=== PATIENT | female | born 1970 | race Caucasian/White ===

== ENCOUNTER 2019-11-06 13:09 | Outpatient (CLI) | payer BC, SELFPAY ==
--- NOTE | ~2019-11-06 | XR_ITS ---
EXAMINATION: XR chest 2V DATE: 11/06/2019 13:46 INDICATION: Viral cardiomyopathy. Chest pressure. TECHNIQUE: Frontal and lateral views of the chest were obtained. COMPARISON: Chest 2 views 08/24/2019, CT abdomen and pelvis 08/24/2019 FINDINGS: The chest demonstrates clear lungs without pneumonia, pleural effusion, or pneumothorax. Ca rdiomegaly is noted. IMPRESSION: 1. Cardiomegaly. Reviewed, dictated and finalized at location A. EON MASTER IMPRESSION: 1. Cardiomegaly.
== END 2019-11-06 13:10 | disposition home or self-care (01) ==
LOC: ANHIMG 13:24
PROVIDERS: PCP Family Medicine
DX: B33.24 Viral cardiomyopathy (principal)
CPT/HCPCS: 71046

== ENCOUNTER 2020-05-13 09:16 | Outpatient (CLI) | payer BC, SELFPAY ==
--- NOTE | ~2020-05-13 | XR_ITS ---
XR sternoclavicular joint BI DATE: 05/13/2020 09:39 INDICATION: Right shoulder, sternoclavicular pain TECHNIQUE: AP and bilateral oblique views COMPARISON: None FINDINGS: Normal alignment at the sternoclavicular and acromioclavicular joints. Sternoclavicular gita nts Left-sided defibrillator/pacemaker device. IMPRESSION: Negative Reviewed, dictated and finalized at Location [facility]. Reviewed, dictated and finalized at location A. IMPRESSION: Negative
--- NOTE | ~2020-05-13 | XR_ITS ---
XR chest 2V DATE: 05/13/2020 09:38 INDICATION: Joint disorder of right shoulder. Congestive heart failure. TECHNIQUE: PA and lateral views COMPARISON: 11/06/2019 2 view chest FINDINGS: Left-sided defibrillator/triple lead pacemaker device with leads in expected position. Normal heart size. No hilar or mediastinal enlargement. No pulmonary infiltrate or consolidation, pleural effusion or pulmonary vascular congestion or pneumo thorax. IMPRESSION: No active cardiopulmonary disease New defibrillator/triple lead pacemaker device placement since 11/06/2019 Reviewed, dictated and finalized at location A.
== END 2020-05-13 09:17 | disposition home or self-care (01) ==
LOC: ANHIMG 09:21
PROVIDERS: PCP Family Medicine; Visit Provider Physician Assistant
DX: M25.811 Other specified joint disorders, right shoulder (principal); I50.9 Heart failure, unspecified; Z95.0 Presence of cardiac pacemaker
CPT/HCPCS: 71046; 71130

== ENCOUNTER 2020-05-20 12:42 | Emergency (ER) | payer BC, SELFPAY ==
--- NOTE | ~2020-05-20 | CT_ITS ---
EXAMINATION: CT chest w con DATE: 05/20/2020 15:08 INDICATION: Cough TECHNIQUE: Transaxial computed tomographic images of the chest were obtained after the administration of 75 cc of Omnipaque 350 intravenous contrast. The dose-length product (DLP) was 305.01 mGy-cm. Ite rative reconstruction was used. COMPARISON: 05/25/2005 FINDINGS: The lungs are free of acute opacities. There is no pleural effusion or pneumothorax. There is a 3 mm nodule of the right upper lobe on image 25. A triple lead pacemaker has been inserted in th e left anterior chest wall. Cardiomegaly is noted. There are no pathologically enlarged thoracic lymp h nodes. There is mild thoracic spondylosis. IMPRESSION: 1. No acute cardiopulmonary abnormality. 2. 3 mm nodule of the right upper lobe, likely old granulomatous disease. If the patient has no risk factors for malignancy, no further follow up is required. If there are risk factors for malignancy ( i.e., history of smoking, asbestos or radiation exposure), consider followup CT in 12 months. Reviewed, dictated and finalized at location A. IMPRESSION: 1. No acute cardiopulmonary abnormality. 2. 3 mm nodule of the right upper lobe, likely old granulomatous disease. If th e patient has no risk factors for malignancy, no further follow up is required. If there are risk factors for malignancy (i.e., history of smoking, asbestos or radiation exposure), consider followup CT in 12 months.
[2020-05-20 12:44] VITALS: BP 107/74; PULSE 91; RESP 18; TEMP 36.7; O2SAT 100
--- NOTE | 2020-05-20 14:17 | WC.ED.TRAUMA ---
HPI - Trauma General Chief Complaint: Extremity Injury, Upper <Gideon Shearer PA-C - Last Filed: 05/20/20 16:10> Stated Complaint: right clavicle pain <Gideon Shearer PA-C - Last Filed: 05/20/20 16:10> Time Seen by Provider: 05/20/20 13:31 <Gideon Shearer PA-C - Last Filed: 05/20/20 16:10> Source: patient and family <RATNA Bryan Last Filed: 05/20/20 16:10> Mode of arrival: ambulatory <Gideon Shearer PA-C - Last Filed: 05/20/20 16:10> Limitations: no limitations <Gideon Shearer PA-C - Last Filed: 05/20/20 16:10> History of Present Illness HPI narrative: Patient is a 50-year-old female who presents with over a week duration of tenderness along the right sternoclavicular junction patient was seen by primary care had outpatient x-rays which were unremarkable continues to have pain and swelling with some radiation to the back patient denies injury or trauma or similar occurrence patient on arrival is in the room in no distress has taken Tylenol with minimal improvement <Gideon Shearer PA-C - Last Filed: 05/20/20 16:10> Related Data Home Medications: Home Medications Medication Instructions Recorded Confirmed metoprolol succinate 50 mg 50 mg PO DAILY 05/13/20 05/13/20 tablet,extended release 24 hr sacubitril 97 mg-valsartan 103 mg 1 tablet PO BID 05/13/20 05/13/20 tablet fluoxetine 60 mg PO QAM 05/20/20 <Gideon Shearer PA-C - Last Filed: 05/20/20 16:10> Allergies/Adverse Reactions: Allergies Allergy/AdvReac Type Severity Reaction Status Date / Time No Known Allergies Allergy Verified 05/20/20 13:06 <Gideon Shearer PA-C - Last Filed: 05/20/20 16:10> Review of Systems Review of Systems: All systems reviewed & are unremarkable except as noted in HPI and below <Gideon Shearer PA-C - Last Filed: 05/20/20 16:10> PMFSH Past Medical History Medical History: Medical History Allergy to intravenous contrast Anxiety Asthma Enlargement of right sternoclavicular joint History of stroke without residual deficits LBBB (left bundle branch block) Nonischemic cardiomyopathy RLS (restless legs syndrome) Seasonal allergies <Gideon Shearer PA-C - Last Filed: 05/20/20 16:10> Surgical History Surgical History: Surgical History H/O section x2 History of cholecystectomy History of tubal ligation <Gideon Shearer PA-C - Last Filed: 05/20/20 16:10> Social History Social History: Social History Social History: , 2 grown children. 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 Smoking status: Never smoker Second hand tobacco smoke exposure: No Alcohol intake: current Substance use: never Gender identity (if verbalized by the patient): Female Spiritual care concerns: No Agree to blood products: Yes <Gideon Shearer PA-C - Last Filed: 05/20/20 16:10> Exam Narrative: Exam Narrative: GENERAL: Well-appearing, well-nourished, and in no acute distress. HEAD: Normocephalic, atraumatic. EYES: PERRLA and EOMI. ENT: Nares clear, no rhinorrhea or epistaxis. Mucous membranes moist. NECK: Supple. No adenopathy or masses. CHEST: Clear to auscultation. No respiratory distress. No wheezes rales or rhonchi HEART: Regular rate and rhythm. No murmur heard. Normal peripheral pulses. EXTREMITIES: Normal range of motion. No edema. Tenderness at the sternoclavicular junction right-sided no deformities noted SKIN: Warm, dry, no rash. NEURO: No focal deficits. Alert and oriented x3. Cranial nerves II through XII grossly intact. Normal speech and gait. Neurovascularly intact PSYCH: Normal mood and affect. <Gideon Shearer PA-C - Last Filed: 05/20/20 16:10> Course Course Emergency Course: Patient
[2020-05-20 14:40] LABS: Basophils Absolute Auto 0.1 K/mm3 (0.0-0.1); Basophils Percent Auto 0.5 % (0.2-1.2); Eosinophils Absolute Auto 0.5 K/mm3 (0-0.3); Eosinophils Percent Auto 5.6 % (0-4.4); Hematocrit 39.3 % (37.0-47.0); Hemoglobin 13.2 g/dL (12.0-15.0); Immature Granulocyte Absolute 0.05 K/mm3 (0.00-0.031); Immature Granulocyte Percent A 0.5 % (0-0.5); Lymphocytes Absolute Auto 1.49 K/mm3 (0.9-3.2); Lymphocytes Percent Auto 15.6 % (18.3-44.2); Mean Corpuscular HGB Conc 33.6 g/dl (32-36); Mean Corpuscular Hemoglobin 29.4 pg (26-34); Mean Corpuscular Volume 87.5 fl (80-100); Mean Platelet Volume 10.6 fl (7.4-10.4); Monocytes Absolute Auto 0.7 K/mm3 (0.1-0.6); Monocytes Percent Auto 6.8 % (2.6-8.5); Neutrophils Absolute Auto 6.8 K/mm3 (1.3-6.7); Platelet Count Result 243 k/mm3 (150-375); Red Blood Count 4.49 M/mm3 (4.2-5.4); Red Cell Distribution Width 13.2 % (11.5-14.5); White Blood Count 9.5 K/mm3 (4.5-10.0)
[2020-05-20 14:52] LABS: Alanine Aminotransferase 42 U/L (4-35); Albumin Level 4.3 g/dL (3.5-5.1); Alkaline Phosphatase 63 U/L (38-126); Anion Gap 7 mmol/L (8-16); Aspartate Amino Transferase 41 U/L (14-36); Bilirubin,Total 0.4 mg/dL (0.2-1.3); Blood Urea Nitrogen 10 mg/dL (7-17); Calcium 8.8 mg/dL (8.4-10.2); Carbon Dioxide 28 mmol/L (22-30); Chloride 101 mmol/L (98-107); Estimated Glomerular Filt Rate > 60; Glucose 104 mg/dL (65-105); Potassium 3.4 mmol/L (3.4-5.0); Sodium 136 mmol/L (137-145)
[2020-05-20 16:28] VITALS: BP 114/66; PULSE 67; RESP 16; TEMP 36.6; O2SAT 100
== END 2020-05-20 16:29 | disposition home or self-care (01) ==
PROVIDERS: Emergency Medicine Emergency Medical Services; Emergency Provider Emergency Medicine; PCP Family Medicine
DX: R07.9 Chest pain, unspecified (principal); F41.9 Anxiety disorder, unspecified; J45.909 Unspecified asthma, uncomplicated
CPT/HCPCS: 36415; 71260; 80053; 85025; 99284; Q9967

== ENCOUNTER 2020-09-03 17:19 | Outpatient (CLI) | payer BC, SELFPAY ==
--- NOTE | ~2020-09-03 | XR_ITS ---
EXAMINATION: XR chest 2V DATE: 09/03/2020 17:46 INDICATION: Midsternal chest pain and shortness of breath TECHNIQUE: PA and lateral views of the chest were obtained. COMPARISON: Chest radiograph dated 05/13/2020 FINDINGS: The lungs remain clear with no focal airspace opacities, pulmonary edema, pleural effusion or pneumot horax. The cardiomediastinal silhouette is normal. Three lead pacemaker/AICD seen with leads projecti ng over the expected locations of the right atrial appendage, apex of the right ventricle and overlyi ng the left ventricle likely having traversed the coronary sinus. IMPRESSION: 1. No acute cardiopulmonary disease. Reviewed, dictated and finalized at location A. 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
== END 2020-09-03 17:20 | disposition home or self-care (01) ==
PROVIDERS: PCP Family Medicine; Visit Provider Internal Medicine Cardiovascular Disease
DX: R06.02 Shortness of breath (principal); R07.89 Other chest pain; R07.2 Precordial pain
CPT/HCPCS: 71046

== ENCOUNTER 2021-02-01 12:40 | Emergency (ER) | payer BC, SELFPAY ==
[2021-02-01] VITALS (12 sets, daily range): BP systolic 99–125; BP diastolic 51–80; PULSE 58–74; RESP 10–19; TEMP 36.2; O2SAT 96–100
--- NOTE | ~2021-02-01 | XR_ITS ---
EXAMINATION: XR chest 1V portable DATE: 02/01/2021 15:47 INDICATION: Right-sided chest pain and tingling. Hypotension. TECHNIQUE: frontal view of the chest was obtained. COMPARISON: Chest radiograph dated 09/03/2020 FINDINGS: There is mild bronchial wall thickening at the bilateral jimmie. No focal airspace opacities, pleural e ffusion or pneumothorax. The cardiomediastinal silhouette is normal. Three lead pacemaker/AICD seen w ith leads projecting over the expected locations of the right atrial appendage, apex of the right cinthya tricle and overlying the left ventricle likely having traversed the coronary sinus. IMPRESSION: 1. Mild perihilar bronchial wall thickening which could be due to bronchitis, reactive airway disease /asthma or potentially minimal pulmonary edema. Reviewed, dictated and finalized at location A. IMPRESSION: 1. Mild perihilar bronchial wall thickening which could be due to bronchitis, r eactive airway disease/asthma or potentially minimal pulmonary edema.
--- NOTE | ~2021-02-01 | CT_ITS ---
EXAMINATION: CT brain wo con DATE: 02/01/2021 14:17 INDICATION: Right arm tingling TECHNIQUE: Computed tomography (CT) of the head was performed without intravenous contrast. The mA wa s adjusted according to patient size. Iterative reconstruction technique was employed. Exam dose: 60 5.33 mGy-cm total exam DLP. COMPARISON: None FINDINGS: There is bilateral asymmetric frontal cerebral cortical atrophy. There is focal asymmetric diminished attenuation in the left frontotemporal area, likely consistent with old cerebrovascular in farct. No intracranial mass lesion or hemorrhage. No recent cerebrovascular accident is detected. No midline shift or mass effect. No subdural or epi dural hematoma is detected. There is soft tissue thickening of the ethmoid air cells. Included paranasal sinuses and mastoid air cells are otherwise normally developed and aerated. IMPRESSION: Cerebral atrophy Chronic focal left frontotemporal encephalofacial, likely due to old CVA No acute intracranial abnormality Reviewed, dictated and finalized at Location A. Reviewed, dictated and finalized at location A.
--- NOTE | 2021-02-01 13:15 | ECG_ITS ---
SINUS RHYTHM RIGHT AXIS DEVIATION INCOMPLETE LEFT BUNDLE BRANCH BLOCK BORDERLINE R WAVE PROGRESSION, ANTERIOR LEADS BORDERLINE ST ABNORMALITY- INFERIOR LEADS BASELINE ARTIFACT- I, II, III, AVR, AVL, AVF, V1, V3-V6 ABNORMAL ECG Electronically Signed On 02-01-2021 19:20:52 CDT by Librado Ortez D.O. COMPARED TO ECG 08/25/2019 03:12:31 NO SIGNIFICANT CHANGES MTDD
[2021-02-01 13:30] LABS: Basophils Absolute Auto 0.1 K/mm3 (0.0-0.1); Basophils Percent Auto 0.6 % (0.2-1.2); Eosinophils Absolute Auto 0.7 K/mm3 (0-0.3); Eosinophils Percent Auto 6.4 % (0-4.4); Hematocrit 38.3 % (37.0-47.0); Hemoglobin 12.2 g/dL (12.0-15.0); Immature Granulocyte Absolute 0.04 K/mm3 (0.00-0.031); Immature Granulocyte Percent A 0.4 % (0-0.5); Lymphocytes Absolute Auto 1.69 K/mm3 (0.9-3.2); Mean Corpuscular HGB Conc 31.9 g/dl (32-36); Mean Corpuscular Hemoglobin 27.7 pg (26-34); Mean Corpuscular Volume 86.8 fl (80-100); Mean Platelet Volume 10.6 fl (7.4-10.4); Monocytes Absolute Auto 0.8 K/mm3 (0.1-0.6); Neutrophils Absolute Auto 7.2 K/mm3 (1.3-6.7); Neutrophils Percent Auto 68.6 % (45.5-73.1); Platelet Count Result 263 k/mm3 (150-375); Red Blood Count 4.41 M/mm3 (4.2-5.4); Red Cell Distribution Width 13.8 % (11.5-14.5); White Blood Count 10.6 K/mm3 (4.5-10.0)
[2021-02-01 13:37] LABS: Anion Gap 3 mmol/L (8-16); Blood Urea Nitrogen 10 mg/dL (7-17); Carbon Dioxide 33 mmol/L (22-30); Chloride 103 mmol/L (98-107); Estimated CRCL calculation 77 ml/min; Estimated Glomerular Filt Rate > 60; Glucose 92 mg/dL (65-105); Potassium 3.6 mmol/L (3.4-5.0); Sodium 139 mmol/L (137-145)
[2021-02-01] MEDS: SODIUM CHLORIDE 0.9% IV 500 ML 999 ML IV CONT (13:39)
[2021-02-01] MEDS: KETOROLAC 15 MG/ML VIAL (*BKC) IV PUSH (15:36)
[2021-02-01 15:37] LABS: Troponin I < 0.012 ng/mL (0.000-0.034)
[2021-02-01] MEDS: MORPHINE SULFATE (*CRX) 4 MG/ML INJ 2 MG IV PUSH (15:37)
--- NOTE | 2021-02-01 16:17 | ED.GENADULT ---
HPI - General Adult General Chief complaint: Recheck/Abnormal Lab/Rx Stated complaint: low blood pressure Time Seen by Provider: 02/01/21 13:25 Source: patient and family Mode of arrival: ambulatory Limitations: no limitations History of Present Illness HPI narrative: 50-year-old with a history of nonischemic cardiomyopathy s/p AICD here with complaints of low blood pressure for past few days. Patient states she is taking 50 mg of metoprolol daily. She also complains of chest pain on the right side of her chest which radiates to the left. Denies any shortness of breath. History of nausea but no significant vomiting or diarrhea. No history of fever or chills. She states that she is Dr. Kellogg this morning and was told to come to the ER. Patient also complains of right upper extremity and right lower extremity tingling sensation for past few days. Medical history of strokes in the past. Onset (ago): day(s) (2) Location: chest Radiation: non-radiation Severity: mild Quality: aching Pain Consistency: constant Relieving factors: none Exacerbating factors: none Associated symptoms: headaches Treatments prior to arrival: none Related Data Home Medications Medication Instructions Recorded Confirmed metoprolol succinate 50 mg 50 mg PO DAILY 05/13/20 09/15/20 tablet,extended release 24 hr sacubitril 97 mg-valsartan 103 mg 1 tablet PO BID 05/13/20 09/15/20 tablet furosemide 20 mg tablet 40 mg PO QAM tablet 07/03/20 09/15/20 acetaminophen 500 mg tablet 500 mg PO Q6H PRN 09/15/20 09/15/20 cetirizine 10 mg tablet 10 mg PO DAILY 09/15/20 09/15/20 eszopiclone 1 mg tablet 1 mg PO ONCE 09/15/20 09/15/20 ondansetron HCl 4 mg tablet 4 mg PO Q8H 09/15/20 09/15/20 potassium chloride 20 mEq 20 meq PO DAILY 09/15/20 09/15/20 tablet,extended release spironolactone 25 mg tablet 25 mg PO DAILY 09/15/20 09/15/20 Allergies Allergy/AdvReac Type Severity Reaction Status Date / Time No Known Allergies Allergy Verified 02/01/21 12:41 Review of Systems Review of Systems: All systems reviewed & are unremarkable except as noted in HPI and below Constitutional: Constitutional: Reports no additional constitutional complaints Eyes: Eyes: Reports no additional eye complaints ENT: Reports system reviewed and no additional complaints, except as documented Cardiovascular: Cardiovascular: Reports as per HPI Respiratory: Respiratory: Reports no additional respiratory complaints Gastrointestinal: Gastrointestinal: Reports no additional gastrointestinal complaints Musculoskeletal: Musculoskeletal: Reports as per HPI Neurologic: Reports as per HPI [facility] Past Medical History Medical History (Updated 02/01/21 @ 16:26 by Red Greer MD) Allergy to intravenous contrast Anxiety Asthma Enlargement of right sternoclavicular joint History of stroke without residual deficits LBBB (left bundle branch block) Nonischemic cardiomyopathy RLS (restless legs syndrome) Seasonal allergies Surgical History Surgical History H/O section x2 History of cholecystectomy History of tubal ligation Family History Family History Father , Became short of breath and suddenly at home, son tried CPR but could not revive him. age 49. Hypertension Cerebral aneurysm known cerebral aneurysm 6 or 7 years prior to Mother Alive and well Sibling Hypertension 2 brothers have hypertension Grandparent Cerebral aneurysm Cancer Other Acute myocardial infarction Family history of malignant neoplasm of breast Family history of malignant neoplasm of breast in first degree relative Social History Social History Social History: , 2 grown children. 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 Smoking status: Never smoker Se
== END 2021-02-01 16:26 | disposition home or self-care (01) ==
PROVIDERS: Emergency Provider Family Medicine; PCP Family Medicine
DX: I95.9 Hypotension, unspecified (principal); J45.909 Unspecified asthma, uncomplicated; G25.81 Restless legs syndrome; I42.8 Other cardiomyopathies; Z95.810 Presence of automatic (implantable) cardiac defibrillator; F41.9 Anxiety disorder, unspecified; Z86.73 Personal history of transient ischemic attack (TIA), and cerebral infarction without residual deficits; I44.7 Left bundle-branch block, unspecified; R94.31 Abnormal electrocardiogram [ECG] [EKG]
CPT/HCPCS: 36415; 70450; 71045; 80048; 84484; 85025; 93005; 96361; 96374; 96375; 99284; J1885; J2270; J7040

== ENCOUNTER 2021-02-16 11:04 | Emergency (ER) | payer OTHER, BC, SELFPAY ==
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
[2021-02-16 11:03] VITALS: BP 149/65; PULSE 66; RESP 18; TEMP 36.8; O2SAT 99
[2021-02-16 11:10] VITALS: BP 131/74; PULSE 68; RESP 15; TEMP 36.7; O2SAT 100
[2021-02-16 11:27] VITALS: BP 118/63; PULSE 70; RESP 16; O2SAT 100
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
[2021-02-16] MEDS: ONDANSETRON INJ 4 MG/2 ML VIAL IV PUSH (11:48)
[2021-02-16 11:52] LABS: Basophils Percent Auto 0.4 % (0.2-1.2); Eosinophils Absolute Auto 0.6 K/mm3 (0-0.3); Eosinophils Percent Auto 6.6 % (0-4.4); Hematocrit 38.9 % (37.0-47.0); Hemoglobin 12.4 g/dL (12.0-15.0); Immature Granulocyte Absolute 0.03 K/mm3 (0.00-0.031); Immature Granulocyte Percent A 0.3 % (0-0.5); Lymphocytes Absolute Auto 1.17 K/mm3 (0.9-3.2); Lymphocytes Percent Auto 13.1 % (18.3-44.2); Mean Corpuscular HGB Conc 31.9 g/dl (32-36); Mean Corpuscular Hemoglobin 27.1 pg (26-34); Mean Corpuscular Volume 85.1 fl (80-100); Mean Platelet Volume 10.9 fl (7.4-10.4); Monocytes Absolute Auto 0.6 K/mm3 (0.1-0.6); Monocytes Percent Auto 6.5 % (2.6-8.5); Neutrophils Absolute Auto 6.5 K/mm3 (1.3-6.7); Neutrophils Percent Auto 73.1 % (45.5-73.1); Platelet Count Result 246 k/mm3 (150-375); Red Blood Count 4.57 M/mm3 (4.2-5.4); White Blood Count 8.9 K/mm3 (4.5-10.0)
[2021-02-16 12:03] LABS: Prothrombin Time 13.7 Seconds (11.1-14.7)
[2021-02-16 12:04] LABS: Alanine Aminotransferase 15 U/L (4-35); Albumin Level 4.1 g/dL (3.5-5.1); Alkaline Phosphatase 53 U/L (38-126); Anion Gap 2 mmol/L (8-16); Aspartate Amino Transferase 28 U/L (14-36); Bilirubin,Total 0.4 mg/dL (0.2-1.3); Blood Urea Nitrogen 8 mg/dL (7-17); Calcium 8.8 mg/dL (8.4-10.2); Carbon Dioxide 31 mmol/L (22-30); Chloride 103 mmol/L (98-107); Estimated CRCL calculation 89 ml/min; Estimated Glomerular Filt Rate > 60; Glucose 93 mg/dL (65-105); Lipase 79 U/L (23-300); Partial Thromboplastin Time 31.7 SECONDS (22.3-36.8); Potassium 3.3 mmol/L (3.4-5.0); Sodium 136 mmol/L (137-145)
--- NOTE | 2021-02-16 12:08 | PC.NURSE ---
Pt to CT.
[2021-02-16 12:45] VITALS: BP 123/58; PULSE 68; RESP 15; O2SAT 100
--- NOTE | 2021-02-16 12:50 | PC.NURSE ---
c-collar removed by PA.
[2021-02-16] MEDS: PROCHLORPERAZINE EDISYLATE 10 MG/2 ML VIAL IV PUSH (12:56)
[2021-02-16 14:07] VITALS: BP 132/60; PULSE 78; RESP 18; O2SAT 99
== END 2021-02-16 14:09 | disposition home or self-care (01) ==
PROVIDERS: Physician Assistant; Emergency Provider Emergency Medicine
DX: S16.1XXA Strain of muscle, fascia and tendon at neck level, initial encounter (principal); E87.6 Hypokalemia; V47.5XXA Car driver injured in collision with fixed or stationary object in traffic accident, initial encounter
CPT/HCPCS: 36415; 70450; 71260; 72125; 73030; 74177; 80053; 81025; 83690; 85025; 85610; 85730; 96365; 96375; 99284; J0131; J0780; J2405; Q9967

== ENCOUNTER → 2021-04-17 06:54 | Outpatient (CLI) | payer BC, SELFPAY ==
[2021-04-17 19:10] LABS: SARS-CoV-2 RNA PCR Negative
== END ==
PROVIDERS: PCP Family Medicine; Visit Provider Physician Assistant
DX: R05 Cough (principal); Z20.822 Contact with and (suspected) exposure to COVID-19
CPT/HCPCS: C9803; U0003; U0005

== ENCOUNTER 2021-05-08 12:11 | Outpatient (CLI) | payer BC, SELFPAY ==
--- NOTE | ~2021-05-08 | XR_ITS ---
XR chest 2V DATE: 05/08/2021 12:32 INDICATION: Cough TECHNIQUE: PA and lateral views COMPARISON: 02/16/2021 CT chest 02/01/2021 portable AP chest FINDINGS: Left defibrillator/pacemaker device with leads overlying right atrium, right ventricle and coronary sinus. Normal heart size. No hilar or mediastinal enlargement. No pulmonary infiltrate or co nsolidation, pleural effusion or pulmonary vascular congestion or pneumothorax. Included skeletal structures are unremarkable. IMPRESSION: Left-sided defibrillator/triple lead pacemaker No active cardiopulmonary disease Reviewed, dictated and finalized at location B.
== END 2021-05-08 12:12 | disposition home or self-care (01) ==
LOC: ANHIMG 12:16
PROVIDERS: PCP Family Medicine; Visit Provider Family Medicine
DX: R05 Cough (principal); Z95.0 Presence of cardiac pacemaker
CPT/HCPCS: 71046

== ENCOUNTER 2021-06-09 08:27 | Outpatient (CLI) | payer BC, SELFPAY ==
--- NOTE | 2021-06-09 11:00 | NEURO_ITS ---
Impression: # Complains of right upper extremity pain and numbness of right hand. # Subtle evolving Carpal Tunnel Syndrome. # No ulnar neuropathy. # Normal needle/EMG exam. Nerve Conduction Studies Anti Sensory Summary Table Stim Site NR Peak (ms) P-T Amp (?V) Site1 Site2 Delta-P (ms) Dist (cm) Richard (m/s) Left Median Anti Sensory (2-3nd Digit) Wrist 2.9 69.3 Wrist 2-3nd Digit 2.9 14.0 48 Wrist 2.9 102.3 Wrist 2-3nd Digit 2.9 14.0 48 Right Median Anti Sensory (2-3nd Digit) Wrist 3.3 79.9 Wrist 2-3nd Digit 3.3 14.0 42 Wrist 3.5 50.6 Wrist 2-3nd Digit 3.3 14.0 42 Left Radial Anti Sensory (Base 1st Digit) Wrist 2.0 57.0 Wrist Base 1st Digit 2.0 0.0 Right Radial Anti Sensory (Base 1st Digit) Wrist 1.8 35.9 Wrist Base 1st Digit 1.8 0.0 Left Ulnar Anti Sensory (5th Digit) Wrist 2.4 78.4 Wrist 5th Digit 2.4 14.0 58 Right Ulnar Anti Sensory (5th Digit) Wrist 2.2 99.3 Wrist 5th Digit 2.2 14.0 64 Motor Summary Table Stim Site NR Onset (ms) O-P Amp (mV) Site1 Site2 Delta-0 (ms) Dist (cm) Richard (m/s) Left Median Motor (Abd Poll Brev) Wrist 3.8 4.6 Elbow Wrist 4.8 26.0 54 Elbow 8.6 2.8 Right Median Motor (Abd Poll Brev) Wrist 3.4 7.2 Elbow Wrist 5.0 25.0 50 Elbow 8.4 5.0 Left Ulnar Motor (Abd Dig Minimi) Wrist 2.7 9.0 A Elbow Wrist 4.6 27.0 59 A Elbow 7.3 6.0 Right Ulnar Motor (Abd Dig Minimi) Wrist 2.5 7.6 A Elbow Wrist 5.0 27.0 54 A Elbow 7.5 7.2 F Wave Studies NR F-Lat (ms) L-R F-Lat (ms) Left Median (Mrkrs) (Abd Poll Brev) 28.67 0.13 Right Median (Mrkrs) (Abd Poll Brev) 28.54 0.13 Left Ulnar (Mrkrs) (Abd Dig Min) 27.40 0.34 Right Ulnar (Mrkrs) (Abd Dig Min) 27.07 0.34 EMG Side Muscle Nerve Root Ins Act Fibs Amp Dur Recrt Comment Right 1stDorInt Ulnar C8-T1 Nml Nml Nml Nml Nml Right Ext Indicis Radial (Post Int) C7-8 Nml Nml Nml Nml Nml Right Ext Digitorum Radial (Post Int) C7-8 Nml Nml Nml Nml Nml Right BrachioRad Radial C5-6 Nml Nml Nml Nml Nml Right PronatorTeres Median C6-7 Nml Nml Nml Nml Nml Right Abd Poll Brev Median C8-T1 Nml Nml Nml Nml Nml Left 1stDorInt Ulnar C8-T1 Nml Nml Nml Nml Nml Left Ext Indicis Radial (Post Int) C7-8 Nml Nml Nml Nml Nml Left Ext Digitorum Radial (Post Int) C7-8 Nml Nml Nml Nml Nml Left BrachioRad Radial C5-6 Nml Nml Nml Nml Nml Left PronatorTeres Median C6-7 Nml Nml Nml Nml Nml Left Abd Poll Brev Median C8-T1 Nml Nml Nml Nml Nml Right Biceps Musculocut C5-6 Nml Nml Nml Nml Nml Right Triceps Radial C6-7-8 Nml Nml Nml Nml Nml Right Deltoid Axillary C5-6 Nml Nml Nml Nml Nml Left Biceps Musculocut C5-6 Nml Nml Nml Nml Nml Left Triceps Radial C6-7-8 Nml Nml Nml Nml Nml Left Deltoid Axillary C5-6 Nml Nml Nml Nml Nml MTDD
== END 2021-06-09 08:28 | disposition home or self-care (01) ==
PROVIDERS: PCP Family Medicine; Visit Provider Psychiatry & Neurology Neurology
DX: R20.0 Anesthesia of skin (principal); G56.01 Carpal tunnel syndrome, right upper limb
CPT/HCPCS: 95886; 95911

== ENCOUNTER → 2022-01-11 13:08 | Outpatient (CLI) | payer BC, SELFPAY ==
--- NOTE | ~2022-01-11 | MM_ITS ---
EXAMINATION: MM screening harris BI w tobias HISTORY: Screening mammogram TECHNIQUE: Craniocaudal and mediolateral oblique 3-D tomosynthesis images were obtained and synthetic 2-D images were generated. Bilateral rotated lateral CC views. Bilateral rotated lateral CC views. C AD analysis was submitted and interpreted. COMPARISON: No prior mammogram is available for comparison at this institution. BREAST PARENCHYMAL COMPOSITION: There are scattered areas of fibroglandular density. FINDINGS: Possible new 4.5 mm mass in the anterior aspect of the lower outer right breast (craniocaud al Tomosynthesis image ). Diagnostic right mammogram and right breast ultrasound examination are recommended. Left breast: There is no evidence of suspicious mass, calcification, or architectural distortion to s uggest malignancy in either breast. There has been no suspicious interval change. IMPRESSION: 1. Possible new 4.5 mm mass in the anterior aspect of lower outer right breast 2. Diagnostic right mammogram and right breast ultrasound examination are recommended. BI-RADS Category 0: Incomplete: Needs additional imaging evaluation. Reviewed, dictated and finalized at location A. IMPRESSION: 1. Possible new 4.5 mm mass in the anterior aspect of lower outer right breast 2. Diagnostic right mammogram and right breast ultrasound examination are recom mended. BI-RADS Category 0: Incomplete: Needs additional imaging evaluation.
== END ==
PROVIDERS: PCP Family Medicine; Visit Provider Physician Assistant
DX: Z12.31 Encounter for screening mammogram for malignant neoplasm of breast (principal); R92.8 Other abnormal and inconclusive findings on diagnostic imaging of breast
CPT/HCPCS: 77063; 77067

== ENCOUNTER → 2022-01-25 08:17 | Outpatient (CLI) | payer BC, SELFPAY ==
--- NOTE | ~2022-01-25 | MMUS_ITS ---
EXAMINATION: MM diagnostic harris RT w tobias, US breast RT limited HISTORY: Follow-up right breast asymmetry TECHNIQUE: Additional 3-D tomosynthesis images of the right breast were performed and synthetic 2-D i mages were generated. CAD analysis was submitted and interpreted. High resolution Limited right breas t ultrasound was performed. COMPARISON: Comparison to multiple prior studies sequentially, with oldest reviewed study dated 12/21. BREAST PARENCHYMAL COMPOSITION: Breast composed of scattered areas of fibroglandular density FINDINGS: MAMMOGRAPHIC FINDINGS: There are no suspicious masses, calcifications or architectural distortion in the right breast to sug gest malignancy. ULTRASOUND: Limited right breast ultrasound: Normal heterogeneous echotexture without focal solid or cystic mass. IMPRESSION: 1. No evidence for malignancy in the right breast. 2. Routine yearly screening mammogram and regular clinical breast examination are recommended. BI-RADS Category 1: Negative Reviewed, dictated and finalized at location A. IMPRESSION: 1. No evidence for malignancy in the right breast. 2. Routine yearly screening mammogram and regular clinical breast examination a re recommended. BI-RADS Category 1: Negative
== END ==
PROVIDERS: PCP Physician Assistant; Visit Provider Physician Assistant
DX: R92.8 Other abnormal and inconclusive findings on diagnostic imaging of breast (principal)
CPT/HCPCS: 76642; 77061; 77065; G0279

== ENCOUNTER 2022-03-02 14:55 | Outpatient (CLI) | payer BC, SELFPAY ==
--- NOTE | ~2022-03-02 | XR_ITS ---
EXAMINATION: XR hip LT 2V w AP pelvis INDICATION: Pelvic and left hip pain TECHNIQUE: AP view of the pelvis and two views of the left hip are obtained. COMPARISON: None available FINDINGS: Bone alignment is normal. There is no fracture. The soft tissues are unremarkable. IMPRESSION: 1. No acute osseous abnormality. Reviewed, dictated and finalized at location F.
--- NOTE | ~2022-03-02 | XR_ITS ---
EXAMINATION: XR lumbar spine 2-3V DATE: 03/02/2022 15:19 INDICATION: Low back pain TECHNIQUE: Anteroposterior and lateral views of the lumbar spine, and cone-down lateral view of the l umbosacral junction were obtained. COMPARISON: None. FINDINGS: Bone alignment is normal. There is no fracture. The vertebral body heights an intervertebra l disc spaces are maintained. Small degenerative osteophytes project from the anterior endplates of m ultiple vertebral bodies. IMPRESSION: 1. Mild lumbar spondylosis without acute findings. Reviewed, dictated and finalized at location F.
== END 2022-03-02 14:56 | disposition home or self-care (01) ==
PROVIDERS: PCP Family Medicine; Visit Provider Physician Assistant Medical
DX: M54.50 Low back pain, unspecified (principal); M25.552 Pain in left hip; M47.816 Spondylosis without myelopathy or radiculopathy, lumbar region
CPT/HCPCS: 72100; 73502

== ENCOUNTER 2023-02-07 08:41 | Outpatient (CLI) | payer BC, SELFPAY ==
--- NOTE | ~2023-02-07 | XR_ITS ---
EXAMINATION: XR fl inj shoulder RT - MR/CT DATE: 02/07/2023 09:34 INDICATION: Right shoulder adhesive capsulitis TECHNIQUE: A time-out was performed to verify the patient's name, date of , and procedure to b e performed. The procedure including the risks, benefits, and alternatives was discussed with the pat ient. Risks discussed included bleeding and infection. The patient understood the risks and agreed to proceed. The skin overlying the rotator cuff interval of the right glenohumeral joint was prepped a nd draped in usual sterile fashion. Anesthetic was administered with 1% lidocaine subcutaneously. A 22 G needle was advanced under fluoroscopic guidance into the joint. Injectate consisting of a 1:1:1 mixture of sterile saline:Omnipaque 240:1% lidocaine was injected with intra-articular administratio n confirmed with intermittent fluoroscopy. The needle was removed and the entry site was cleaned and dressed. There were no immediate complications. Fluoroscopy exposure time was 0.2 minutes. The total number of images was 61. FINDINGS: Real-time fluoroscopy demonstrates the needle in the right glenohumeral joint. IMPRESSION: 1. Successful right glenohumeral joint injection of an iodinated contrast mixture for subsequent CT a rthrogram which will be dictated separately. Reviewed, dictated and finalized at location A. IMPRESSION: 1. Successful right glenohumeral joint injection of an iodinated contrast mixtu re for subsequent CT arthrogram which will be dictated separately.
--- NOTE | ~2023-02-07 | CT_ITS ---
EXAMINATION: CT shoulder RT w con DATE: 02/07/2023 09:45 INDICATION: Right shoulder adhesive capsulitis TECHNIQUE: High resolution computed tomography (CT) arthrogram of the shoulder was performed with int ra-articular contrast but without intravenous contrast. Details of the contrast mixture and joint inj ection have been dictated separately. Additional sagittal and coronal reconstructions were performed. Automated exposure control and iterative reconstruction technique were employed. The dose-length pro duct was 356.36 mGy-cm. COMPARISON: Right shoulder radiographs dated 10/19/2022 and 08/24/2021 FINDINGS: Bone alignment is normal. No fracture. Mild osteoarthritis at the right acromioclavicular joint with chronic mild subarticular cystic change at the lateral head of the clavicle. Mild glenohumeral osteoa rthritis with nonuniform partial-thickness cartilage loss along portions of the posterior and superio r aspects of the humeral head. No evident labral tear. No evident contrast extension into the rotator cuff to suggest an articular sided tear. Contrast surrounds the normal appearing long head of the bi ceps tendon. No asymmetric fatty atrophy of the musculature of the shoulder girdle including the rota tor cuff muscles. No evident increased fluid in the subacromial/subdeltoid bursa to suggest bursitis. No pathologically enlarged lymphadenopathy at the right axilla or visualized right hilum and mediast inum. Visualized portion of the right lung are clear. Three lead pacemaker/AICD seen more completely on the cardiac nurse practitioner topogram with leads projecting over the expected locations of the right atrial appendage , apex of the right ventricle and overlying the left ventricle likely having traversed the coronary s inus. IMPRESSION: 1. Mild right acromioclavicular and glenohumeral osteoarthritis. 2. No evident tear of the labrum, long head biceps tendon or articular side of the rotator cuff. Reviewed, dictated and finalized at location A.
== END 2023-02-07 08:42 | disposition home or self-care (01) ==
PROVIDERS: PCP Family Medicine; Visit Provider Orthopaedic Surgery
DX: M75.01 Adhesive capsulitis of right shoulder (principal)
CPT/HCPCS: 23350; 73201; 77002; Q9966

== ENCOUNTER → 2023-03-24 14:39 | Outpatient (CLI) | payer BC, SELFPAY ==
--- NOTE | ~2023-03-24 | CT_ITS ---
EXAMINATION: CT BRAIN W/O DATE: 03/24/2023 14:57 INDICATION: Tremors. TECHNIQUE: Computed tomography (CT) of the head was performed without intravenous contrast. The dose- length product was 599.57 mGy-cm. Automated exposure control and iterative reconstruction technique w ere employed. COMPARISON: No prior studies for comparison. FINDINGS: Normal brain parenchymal volume mildly decreased. Normal ferguson-white differentiation. No acu te intracranial hemorrhage, infarction, mass or mass effect. There are scattered mild periventricular and subcortical white matter changes, most likely related to small vessel ischemic disease (microang iopathy). No ventriculomegaly or midline shift. Midline sagittal images demonstrate a normal corpus callosum, c raniovertebral junction and sella turcica. Basilar cisterns are patent. Paranasal sinuses and mastoids are pneumatized. No depressed skull fractures. IMPRESSION: 1. No acute intracranial abnormality. Reviewed, dictated and finalized at location L.
== END ==
PROVIDERS: PCP Family Medicine; Visit Provider Psychiatry & Neurology Neurology
DX: G25.81 Restless legs syndrome (principal); G25.2 Other specified forms of tremor
CPT/HCPCS: 70450

== ENCOUNTER 2023-04-19 00:10 | Day surgery (SDC) | payer BC, SELFPAY ==
[2023-04-11 09:36] VITALS: BMI 32.5
--- NOTE | 2023-04-11 09:42 | PC.NURSE ---
Report to the Outpatient Waiting Room, entrance under the green pavilion located off [facility], at time 0900 on date 04/19/23. Planned Procedure Time: 1100. Time changes happen often and if your time is changed the preop area will call you the afternoon before. - You and your visitor will be asked to self-screen and do not enter if you have any COVID symptoms. - A mask is optional within the hospital at this time. Patients may have clear liquids (water, carbonated beverages, clear teas, apple juice) until 3 hours prior to surgery with a maximum of 20 ounces. - No food from midnight until time of surgery Take the following medications with a SIP of water the morning of surgery: FLUOXETINE, INHALERS DO NOT STOP ANY OF YOUR OTHER PRESCRIPTION MEDICATIONS PRIOR TO SURGERY ?EXCEPT THE FOLLOWING Medications to discontinue per physician: ELIQUIS Date to take last dose: PER DR. DO Please no make-up, nail citizen of [place], hairspray, perfume, deodorant, or body powder the day of surgery. No jewelry (including any body piercings) or valuables the day of surgery, leave them at home. Please take a shower or bath the night before, or the morning of, surgery with an antibacterial soap. Wear comfortable, loose fitting clothing. - Jewelry must be removed prior to entering the operating room. Rings and piercings that are not removed may be cut off. - The hospital will not accept responsibility for valuables. - Please leave all valuables, including medications, at home the day of surgery. If you are going home after surgery, a licensed recycler forklift driver truck driver must drive you home. - NO public transportation without another adult if you receive anesthesia. - We recommend that an adult stay with you for 24 hours following discharge. - We also recommend that you do not drive, make important decision, drink alcoholic beverages, or take any drugs that were not prescribed by your health care provider for at least 24 hours after your discharge time. Follow any additional instructions given to you from your surgeon. If you or anyone in your household have experienced Covid symptoms in the past week, please notify your surgeon or the nurse liaison at the phone number below for possible testing. Telephone instructions given to PT - DREW MÉNDEZ and asked if any additional questions and then verbalized understanding. Patient advised to call surgeon office or pre surgery nurse liaison [phone] if any additional questions.
--- NOTE | 2023-04-18 15:09 | WPDANESEPPF ---
Anes - Initial Pre Proc Eval Procedure: Operation Date: 04/19/23 11:00 Proposed Procedures p Exam Under Anesthesia Right Shoulder with Intra-articular Injection - Greg Gardner MD Date/Time: 04/18/23 15:09 Surgeon: Greg Gardner MD Pre Op Diagnosis: right frozen shoulder Patient Data Age: 52 Gender: F Height: 1.63 m Weight: 86.2 kg Allergies Allergy/AdvReac Type Severity Reaction Status Date / Time Iodinated Contrast Media Allergy Unknown Unknown Verified 04/11/23 09:34 Home Medications Medication Instructions Recorded Confirmed Type metoprolol succinate 50 mg 25 mg PO DAILY 05/13/20 04/11/23 History tablet,extended release 24 hr sacubitril 97 mg-valsartan 103 mg 1 tablet PO BID 05/13/20 04/11/23 History tablet (Entresto) furosemide 20 mg tablet 40 mg PO QAM 07/03/20 04/11/23 History acetaminophen 500 mg tablet 500 mg PO Q6H PRN Pain 09/15/20 04/11/23 History (Tylenol Extra Strength) spironolactone 25 mg tablet 25 mg PO DAILY 09/15/20 04/11/23 History cetirizine 10 mg tablet (Zyrtec) 10 mg PO DAILY PRN Allergy Symptoms 08/16/22 04/11/23 History albuterol sulfate 90 mcg/actuation 2 inh inhalation Q4H PRN shortness 08/24/22 04/11/23 Rx aerosol inhaler of breath or wheezing #8.5 grams fluticasone 250 mcg-salmeterol 50 1 inh inhalation BID #60 ea 08/24/22 04/11/23 Rx mcg/dose blistr powdr for inhalation (Wixela Inhub) rosuvastatin 20 mg tablet 20 mg PO QPM #90 tabs 12/01/22 04/11/23 Rx fluoxetine 40 mg capsule 40 mg PO DAILY #30 caps 12/13/22 04/11/23 Rx apixaban 5 mg tablet (Eliquis) See Rx Instructions .Route 01/20/23 04/11/23 Rx .COMPLEX #180 tabs baclofen 5 mg tablet See Rx Instructions .Route 02/22/23 04/11/23 Rx .COMPLEX #90 tabs ropinirole 4 mg tablet See Rx Instructions .Route 03/18/23 04/11/23 Rx .COMPLEX #90 tabs aripiprazole 10 mg tablet (Abilify) 10 mg PO DAILY #30 tabs 03/28/23 04/11/23 Rx Patient hx anesthesia problems: none Family hx anesthesia problems: none Results Review: All pre-operative results and documents have been reviewed as part of the pre-operative evaluation. [facility] Past Medical History Medical History Adhesive capsulitis of right shoulder Allergies Allergy to intravenous contrast Anasarca Anxiety Asthma Biceps tendonitis CHF (congestive heart failure) Chronic depression DVT prophylaxis Enlargement of right sternoclavicular joint Frozen shoulder Right shoulder Gallbladder disorder Gastroenteritis Headache, migraine Heart attack Heart disease Hip pain, left History of stroke History of stroke without residual deficits Hyperthyroidism Hypokalemia Iron (Fe) deficiency anemia LBBB (left bundle branch block) Leiomyoma of the skin Low back pain Mild asthma exacerbation Nonischemic cardiomyopathy Normocytic anemia Right shoulder pain Right sided sciatica RLS (restless legs syndrome) Rotator cuff tendonitis Seasonal allergies Stroke Subclinical hyperthyroidism Surgical History Surgical History H/O section x2- 1992 & 1997 History of cardiac defibrillator placement 2019 History of cholecystectomy 2014 History of permanent cardiac pacemaker placement 2019 History of tubal ligation 1997 Hx of excision of mass 06/15/2022- excision of subcutaneous leiomyoma right elbow Family History Family History Father , Became short of breath and suddenly at home, son tried CPR but could not revive him. age 49. Hypertension Cerebral aneurysm known cerebral aneurysm 6 or 7 years prior to Heart disease Mother Alive and well Sibling Hypertension 2 brothers have hypertension Grandparent Cerebral aneurysm Cancer Asthma Daughter Asthma Depression Son Depression Thyroid disorder Other Acute myocardial infa
--- NOTE | 2023-04-19 09:07 | ECG_ITS ---
Measurements Intervals Nora Rate: 54 P: 7 AR: 162 QRS: 129 QRSD: 100 T: 5 QT: 450 QTc: 429 Interpretive Statements ATRIAL SENSE- ELECTRONIC VENTRICULAR PACEMAKER BASELINE ARTIFACT- I, II, III, AVR, AVL, AVF NO FURTHER INTERPRETATION IS POSSIBLE ATYPICAL ECG COMPARED TO ECG 02/01/2021 13:20:28 VENTRICULAR PACEMAKER NOW PRESENT Electronically Signed On 04-19-2023 9:30:08 CDT by Librado Ortez D.O.
[2023-04-19] MEDS: LACTATED RINGERS 1,000 ML 30 ML IV CONT (09:40)
[2023-04-19] MEDS: KETOROLAC 15 MG/ML VIAL (*BKC) IV PUSH (09:40)
[2023-04-19] MEDS: ACETAMINOPHEN 500 MG TABLET 1000 MG PO (09:40)
[2023-04-19 09:43] VITALS: BP 103/50; PULSE 64; RESP 14; TEMP 36.4; O2SAT 100
--- NOTE | 2023-04-19 10:30 | WPDHPUPDATE1 ---
History and Physical Update Update Date/Time: 04/19/23 10:30 History and Physical has been reviewed, including an updated exam of the patient. There are NO changes in the patient's condition. Risks, benefits, and alternatives have been discussed and questions answered. Patient agrees to proceed with procedure.
[2023-04-19] MEDS: LIDOCAINE HCL 1% LOCAL INJ 20 ML VIAL INFILTRATE (10:49)
[2023-04-19 11:04] VITALS: BP 93/34; PULSE 56; RESP 14; O2SAT 100
--- NOTE | 2023-04-19 11:16 | W.PM.PROC2 ---
Procedure Note - Detailed Date of Procedure 04/19/23 Pre-op Diagnosis right frozen shoulder Post-op Diagnosis Same Procedure Performed evaluation under anesthesia of right shoulder with manipulation and intra-articular injection. Surgeon Greg Gardner MD Polystyrene Bead Molder Yobani Zhou Anesthesia MAC Description of Procedure The patient was identified and proper site identified. She was taken back to the operating room and left on the patient gurney. After IV sedation was administered the right shoulder was examined. A gentle manipulation was carried out and then the shoulder was injected intra-articularly with 2 ml of 1% lidocaine and 20 mg of Kenalog. Although full range of motion was not achieved there was significant improvement. The pre and post manipulation numbers are listed below. Pre Post Elevetion: 115 160 Internal rotation: 30 45 External rotation: 5 70 At the completion of the procedure she was taken to the recovery area in stable condition. There were no known complications. Complications No immediate complications Condition Stable Disposition PACU [facility] Billing Surgery - Charge Forward: Surgery Billing ([id number]; [id number] - Large joint injection)
[2023-04-19 11:30] VITALS: BP 108/56; PULSE 60; RESP 20
[2023-04-19] MEDS: oxyCODONE HCL (*CRX) 5 MG TAB IR PO (11:51)
[2023-04-19 12:08] VITALS: BP 100/58; PULSE 55; RESP 20
== END 2023-04-19 12:12 | disposition home or self-care (01) ==
PROVIDERS: PCP Family Medicine; Visit Provider Orthopaedic Surgery
PROC: (CPT 23700; principal; 2023-04-19 11:00)
DX: M75.01 Adhesive capsulitis of right shoulder (principal); I50.9 Heart failure, unspecified; I25.2 Old myocardial infarction; I42.8 Other cardiomyopathies; J45.909 Unspecified asthma, uncomplicated; F41.9 Anxiety disorder, unspecified; F32.A Depression, unspecified; Z79.51 Long term (current) use of inhaled steroids; Z79.01 Long term (current) use of anticoagulants; Z86.73 Personal history of transient ischemic attack (TIA), and cerebral infarction without residual deficits; Z95.810 Presence of automatic (implantable) cardiac defibrillator; E66.9 Obesity, unspecified; Z68.33 Body mass index [BMI] 33.0-33.9, adult
CPT/HCPCS: 23700; 93005; A9270; J1885; J2250; J2704; J3010; J3301; J7120

== ENCOUNTER 2024-04-06 15:10 | Outpatient (CLI) | payer BC, SELFPAY ==
--- NOTE | ~2024-04-06 | MM_ITS ---
EXAMINATION: MM screening harris BI w tobias HISTORY: Screening TECHNIQUE: Craniocaudal and mediolateral oblique 3-D tomosynthesis images were obtained and synthetic 2-D images were generated. CAD analysis was submitted and interpreted. COMPARISON: Comparison to multiple prior studies sequentially, with oldest reviewed study dated 12/21. BREAST PARENCHYMAL COMPOSITION: Not dense: There are scattered areas of fibroglandular density. FINDINGS: Developing bilateral breast asymmetries centered in the upper outer quadrant of both breast s. There are no suspicious calcifications. IMPRESSION: 1. Developing bilateral breast asymmetries. 2. Additional mammographic views and possible breast ultrasound are recommended. BI-RADS Category 0: Incomplete: Needs additional imaging evaluation. Reviewed, dictated and finalized at location B. IMPRESSION: 1. Developing bilateral breast asymmetries. 2. Additional mammographic views and possible breast ultrasound are recommended . BI-RADS Category 0: Incomplete: Needs additional imaging evaluation.
== END 2024-04-06 15:11 ==
PROVIDERS: PCP Family Medicine; Visit Provider Family Medicine
DX: Z12.31 Encounter for screening mammogram for malignant neoplasm of breast (principal); R92.8 Other abnormal and inconclusive findings on diagnostic imaging of breast
CPT/HCPCS: 77063; 77067

== ENCOUNTER 2024-05-03 08:52 | Outpatient (CLI) | payer BC, SELFPAY ==
--- NOTE | ~2024-05-03 | MMUS_ITS ---
EXAMINATION: MM diagnostic harris BI w tobias, US breast BI complete HISTORY: Comparison to multiple prior studies sequentially, with oldest reviewed study dated 12/22/19 19. TECHNIQUE: Additional 3-D tomosynthesis images of the breasts were performed and synthetic 2-D images were generated. CAD analysis was submitted and interpreted. High resolution bilateral complete breas t ultrasound was performed. COMPARISON: Comparison to multiple prior studies sequentially, with oldest reviewed study dated 12/21. BREAST PARENCHYMAL COMPOSITION: Not dense: There are scattered areas of fibroglandular density. FINDINGS: MAMMOGRAPHIC FINDINGS: There are no suspicious masses, calcifications or architectural distortion in either breast to sugges t malignancy. Focal asymmetry laterally in the left breast is not confirmed on MLO or mediolateral vi ews, likely representing superimposed fibroglandular content, best seen on tomographic images. ULTRASOUND: Complete bilateral US of all 4 quadrants of the breasts and retroareolar region was reviewed. Right breast: Normal heterogeneous echotexture without focal solid or cystic mass. Left breast: At 2:00, 8 cm from the nipple there is a cluster of simple cyst measuring 8 mm in aggreg ate. No suspicious masses to suggest malignancy. IMPRESSION: 1. No evidence for malignancy in either breast. 2. Routine yearly screening mammogram and regular clinical breast examination are recommended. BI-RADS Category 2: Benign finding(s). Reviewed, dictated and finalized at location B. IMPRESSION: 1. No evidence for malignancy in either breast. 2. Routine yearly screening mammogram and regular clinical breast examination a re recommended. BI-RADS Category 2: Benign finding(s).
== END 2024-05-03 08:53 ==
LOC: MICIMG 08:53
PROVIDERS: PCP Family Medicine; Visit Provider Family Medicine
DX: R92.8 Other abnormal and inconclusive findings on diagnostic imaging of breast (principal)
CPT/HCPCS: 76641; 77062; 77066; G0279

== ENCOUNTER 2025-07-01 14:37 | Outpatient (CLI) | payer BC, SELFPAY ==
--- NOTE | ~2025-07-01 | XR_ITS ---
EXAMINATION: XR chest 2V, 07/01/2025 14:50 CDT HISTORY: R07.81 - Pleurodynia, LFT RIB AND BACK PAIN X 1 WEEK, NKI COMPARISON: No comparisons available. Technique: 2 views obtained. Findings: The lungs are clear, no effusion. No pneumothorax. Heart is normal size. Mediastinal and hilar contours are within normal limits. Bony thorax no acute abnormality. Left pacemaker Impression: No acute cardiopulmonary abnormality. Reviewed, dictated and finalized at location P. Impression: No acute cardiopulmonary abnormality.
--- OUTSIDE RECORDS SUMMARY | 2025-07-01 15:28 | XMS_ITS | Clinical Summary ---
Author Organization [facility] Address [address] [place] [address] Care Team Providers Care Certified Medical Records Coder Name Role Phone Provider, No Pcp Primary Care Provider Unavailab le Source Comments [facility],non-owned Affiliates and Associated Physician Practices is amultiple site organization consisting of ambulatory clinics and hospital sitesin [place], [place], [place] and [place]. This disclosure is being madepursuant to the Care Everywhere program and may not contain all information available regarding this patient. Last updated 18.[facility] Allergies Active Allergy Reactions Criticality Noted Date Comments Diphenhydramine Other 09/05/2019 states medication irriates restless legs. Medications * Be aware that medications may not be up to date on this document. Always verify current medications with the patient. rOPINIRole (REQUIP) 1 MG tablet Take 1 mg by mouth 3 times daily Active furosemide (LASIX) 20 MG tablet Take 20 mg by mouth once daily Active rosuvastatin (CRESTOR) 20 MG tablet Take 20 mg by mouth once daily Active magnesium oxide (MAG-OX) 400 MG tablet Take 400 mg by mouth once daily Active sacubitril-vals jesús (ENTRESTO) 24-26 MG tablet Take 1 tablet by mouth 2 times daily Active FLUoxetine (PROZAC) 40 MG capsule Take 60 mg by mouth once daily Active metoprolol succinate XL 24hr (TOPROL XL) 12.5 MG TABS Take by mouth once daily Active apixaban (ELIQUIS) 5 MG tablet Take 1 tablet by mouth 2 times daily 60 tablet 5 9 Active spironolactone (Aldactone) 25 MG tablet Take 1 (one) tablet by mouth once daily 4 Active mirtazapine (Remeron) 15 MG tablet 3 Active baclofen (Lioresal) 5 MG TABS Take 1 (one) tablet by mouth 3 times daily 3 Active albuterol HFA (Proventil; Ventolin; Proair) 108 (90 Base) MCG/ACT inhaler INHALE 2 PUFFS BY MOUTH EVERY 4 HOURS NEEDED FOR SHORTNESS OF BREATH OR WHEEZING 2 Active ferrous gluconate 324 (38 Fe) MG tablet Take 60 mg by mouth once daily Active cyanocobalamin (Vitamin B-12) 100 MCG tablet Take 10 (ten) tablets by mouth once daily Active Wixela Inhub 250-50 MCG/ACT inhaler Inhale 1 (one) puff by mouth 2 times daily 4 Active multivitamin w/IRON (Poly-Vi-Tor W/Iron) 11 MG/ML oral solution Take by mouth once daily Commonly known as POLY--TOR with IRON Active ascorbic acid (Vitamin C) 500 MG tablet Take 2 (two) tablets by mouth once daily Active multivitamins plus minerals chew tablet Take 1 (one) tablet by mouth daily with food Active Active Problems Problem Noted Date Diagnosed Date Speech disturbance 09/05/2019 Immunizations Immunization Administration Dates Next Due TDAP (7yrs+) 11/12/2019 Family History Medical History Relation Name Comments Hypertension Father Relation Name Status Comments Father Social History Tobacco Use Types Packs/Day Years Used Date Smoking Tobacco: Never Smokeless Tobacco: Never Tobacco Cessation:Counseling Given: Not Answered Alcohol Use Standard Drinks/Week Comments Never 0 (1 standard drink = 0.6 oz pur e alcohol) AUDIT-C Answer Date Recorded Frequency of Alcohol Consumption Never 09/05/2019 Average Number of Drinks Not on file 019 Frequency of Binge Drinking Not on file 01/2019 Comments No Sex and Gender Information Value Date Recorded Sex Assigned at Female 02/09/2024 10:26 AM CDT Legal Sex Female 11:43 PM SWAMPER Gender Identity Female 02/09/2024 10:26 AM CDT Sexual Orientation Not on file Last Filed Vital Signs Vital Sign Reading Time Taken Comments Blood Pressure 113/70 03/15/2024 2:41 PM CDT Pulse 74 03/15/2024 2:41 PM CDT Temperature 36 C (96.8 F) 03/15/2024 2:41 PM CDT Respiratory Rate 21 09/07/2019 1:00 PM SWAMPER Oxygen Saturation 97% 03/15/2024 2:41 PM CDT Inhaled Oxygen Concentration - - Weight 92.4 kg (203 lb 12.8 oz) 03/15/2024 2:41 PM CDT Height 163.8 cm (5' 4.49) 03/15/2024 2:41 PM CD T Body Mass Index 34.45 03/15/2024 2:41 PM CDT Plan of Treatment Health Maintenance Due Date Last Done Comments COLOGUARD (AGES 45-75) - COLON CA SCREENING 1969 COLON MONITORING 1969 COLONOSCOPY - COLON CA SCREENING 1969 CT COLONOGRAPHY - COLON CA SCREENING 1969 Colorectal Cancer Screening 1969 FIT - COLON CA SCREENING 1969 FLEX SIG - COLON CA SCREENING 1969 MAMMOGRAM 1969 HIV SCREENING 1984 HEPATITIS C SCREENING 05/12/1987 HEPATITIS B VACCINE (1 of 3 - 19+ 3-dose series) 1988 PAP SMEAR 1990 PNEUMOCOCCAL VACCINE 50+ (1 of 1 - PCV) 2019 ZOSTER VACCINE (1 of 2) 2019 SCREENING FOR DIABETES 12/22/2023 9, 09/07/2019, 09/07/2019, Additional history exists DEPRESSION SCREENING 10/03/2024 COVID-19 VACCINE ( season) 2025 INFLUENZA VACCINE (#1) 2025 DTAP/TDAP/TD VACCINES (2 - Td or Tdap) 11/12/2029 11/12/2019 HIB VACCINE Aged Out No longer eligi ble based on patient's age to complete this topic HPV VACCINE Aged Out No longer eligi ble based on patient's age to complete this topic MENINGOCOCCAL (Group B) VACCINE SHARED DECISION-MAKING Aged Out No longer eligible based on patient's age to complete this topic MENINGOCOCCAL GROUPS A/C/Y/W VACCINE Aged Out No longer eligible based on patient's age to complete this topic Procedures Procedure Name Priority Date/Time Associated Diagnosis Comments BASIC METABOLIC PANEL (CALCIUM TOTAL) Routine 09/07/2019 4:09 AM SWAMPER from Last 3 Months or Most Recently Relevant to Health Maintenance Results * BASIC METABOLIC PANEL (CALCIUM TOTAL) (09/07/2019 4:09 AM SWAMPER) BUN 10 7 - 26 mg/dL 09/07/2019 4:35 AM [facility] Creatinine 0.8 0.6 - 1.2 mg/dL 09/07/2019 4:35 AM [facility] Sodium 138 136 - 145 mmol/L 09/07/2019 4:35 AM [facility] Potassium 4.0 3.5 - 4.5 mmol/L 09/07/2019 4:35 AM [facility] Chloride 106 98 - 107 mmol/L 09/07/2019 4:35 AM [facility] CO2 24 22 - 29 mmol/L 09/07/2019 4:35 AM [facility] Glucose 97 70 - 115 mg/dL 09/07/2019 4:35 AM [facility] Calcium 8.7 8.4 - 10.2 mg/dL 09/07/2019 4:35 AM [facility] Anion Gap 12 8 - 18 09/07/2019 4:35 AM [facility] BUN/Creatinine Ratio 13 7 - 23 09/07/2019 4:35 AM [facility] Osmolality Calculated 285 270 - 300 mOsm/kg 09/07/2019 4:35 AM [facility] eGFR >60 >60 mL/min/1.7 3 m2 09/07/2019 4:35 AM [facility] Blood BLOOD SPECIMEN / Unknown Venipuncture / Unknown 09/07/2019 4:09 AM SWAMPER 09/07/2019 4:16 AM [facility] us German Price MD LAB - CHEMISTRY ORDERABLES Final Result [address] [phone] from Last 3 Months or Most Recently Relevant to Health Maintenance Insurance ANTHEM ANTHEM Advance Directives * Full Code (Latest Code Status on File) Date Activated Date Inactivated Comments 09/05/2019 2:57 AM 09/07/2019 4:04 PM * Full Code Date Activated Date Inactivated Comments 09/05/2019 12:04 AM 09/05/2019 2:57 AM Care Teams Certified Medical Records Coder Relationship Specialty Start Date End Date Provider, No Pcp PCP - General 03/15/24
--- OUTSIDE RECORDS SUMMARY | 2025-07-01 15:28 | XMS_ITS | Clinical Summary ---
Author Organization [facility] [address] Address [address] [place] [address] Care Team Providers Care Sprinkler Truck Driver Name Role Phone Miscellaneous, Not In File Unavailable Unava Leatha Damico MD Primary Care Provider [phone] Allergies No known active allergies Medications rosuvastatin (CRESTOR) 20 mg tablet Take 1 tablet (20 mg total) by mouth daily 3 08/18/20 19 Active Wixela Inhub 250-50 mcg/dose diskus inhaler INL 1 PUFF PO BID 08/19/20 20 Active albuterol HFA (PROVENTIL HFA,VENTOLIN HFA,PROAIR HFA) 90 mcg/actuation inhaler Inhale 2 puffs every 6 (six) hours as needed for wheezing Active rOPINIRole (REQUIP) 4 mg tablet nightly 09/27/20 20 Active apixaban (ELIQUIS) 5 mg tablet Take 1 tablet (5 mg total) by mouth 2 (two) times a day 180 tablet 3 12/17/19 21 Active FLUoxetine (PROzac) 60 mg tablet 10/22/19 23 Active baclofen (LIORESAL) 5 mg tablet Take 1 tablet (5 mg total) by mouth as needed 06/19/20 23 Active mirtazapine (REMERON) 15 mg tablet 07/11/20 23 Active spironolactone (ALDACTONE) 25 mg tabletIndications :Chronic systolic CHF (congestive heart failure) (HCC) TAKE 1 TABLET(25 MG) BY MOUTH DAILY 90 tablet 1 04/09/20 24 Active cyanocobalamin (Vitamin B-12) 100 mcg tablet Take 10 tablets (1,000 mcg total) by mouth daily Active pedi mv no.189/ferrous sulfate (POLY--TOR WITH IRON ORAL) Take by mouth daily Active ascorbic acid (vitamin C) 1,000 mg tablet Take 1 tablet (1,000 mg total) by mouth daily Active metoprolol XL (TOPROL-XL) 50 mg extended release tabletIndications :Dilated cardiomyopathy (HCC) Take 0.5 tablets (25 mg total) by mouth daily 45 tablet 3 02/20/20 25 Active furosemide (LASIX) 20 mg tablet TAKE 1 TABLET(20 MG) BY MOUTH TWICE DAILY 180 tablet 06/04/20 25 Active sacubitriL-valsar santana (Entresto) 97-103 mg tablet Take 1 tablet by mouth 2 (two) times a day 180 tablet 1 06/14/20 25 Active furosemide (LASIX) 20 mg tablet Take 1 tablet (20 mg total) by mouth 2 (two) times a day 180 tablet 3 05/17/20 24 025 Discontinued sacubitriL-valsar santana (Entresto) 97-103 mg tablet TAKE 1 TABLET BY MOUTH TWICE DAILY 60 tablet 5 07/03/20 24 025 Discontinued(R loreto) Active Problems Problem Noted Date Diagnosed Date Chest wall pain, chronic 12/15/2020 Dysthymia 12/15/2020 Hypotension 12/15/2020 Precordial pain 09/03/2020 Dizziness 09/03/2020 Nausea 09/03/2020 Elevated LFTs 09/03/2020 Obesity (BMI 30.0-34.9) 09/03/2020 Biventricular ICD (implantab le cardioverter-defibrillator) in place 01/29/2020 Overview (01/29/2020): Medtronic Amplia MRI Quad RUBBER MOULDING MACHINE OPERATOR-D implanted on 01/29/20 for NICM/CHF/LBBB. 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 Encounters Date Type Department Care Team Description 05/06/2025 2:00 PM CDT [facility] [address] [place] [address] [place] [id number] Biventricular ICD (implantable cardioverter-defibril lator) in place (Primary Dx); NICM (nonischemic cardiomyopathy) (HCC) 05/06/2025 Orders Only [facility] [address] [place] [address] [place] [phone] Nasir Moody III, MD NICM (nonischemic cardiomyopathy) ([facility]) (Primary Dx) from Last 3 Months Surgical History Surgery Date Site/Laterality Comments SECTION CHOLECYSTECTOMY 10/03/2014 - 10/02/2015 TUBAL LIGATION Medical History Medical History Date Comments Heart failure Stroke (HCC) Asthma Hyperlipidemia Anxiety 2002 Depression 2002 Heart disease 2019 Family History Medical History Relation Name Comments Hypertension Brother 1 Will Hypertension Brother 2 Naveed Brain Aneurysm Father Fransico Had successfu l surgical repair of brain aneurysm but had sudden a few years later, not known if another aneurysm or sudden cardiac Heart attack Father Fransico Asthma Maternal Grandmother Darcy Relation Name Status Comments Brother 1 Will Alive Brother 2 Naveed Alive Father Fransico (Age 49) Maternal Grandmother Darcy Alive Mother Alive Social History Tobacco Use Types Packs/Day Years Used Date Smoking Tobacco: Never Smokeless Tobacco: Never Alcohol Use Standard Drinks/Week Comments Yes 0 (1 standard drink = 0.6 oz pur e alcohol) socially Comments Unknown Sex and Gender Information Value Date Recorded Sex Assigned at Not on file Legal Sex Female 8:19 AM INTERPRETER DEAF Gender Identity Female 03/10/2020 3:24 PM CDT Sexual Orientation Straight 03/10/2020 3: 24 PM CDT Obstetrics History Last Filed Vital Signs Vital Sign Reading Time Taken Comments Blood Pressure 140/80 12/07/2024 1:28 PM INTERPRETER DEAF Pulse 82 12/07/2024 1:28 PM INTERPRETER DEAF Temperature 36.5 C (97.7 F) 09/30/2020 12:46 PM INTERPRETER DEAF Respiratory Rate 15 01/29/2020 1:47 PM CDT Oxygen Saturation 97% 12/07/2024 1:28 PM INTERPRETER DEAF Inhaled Oxygen Concentration - - Weight 92.5 kg (204 lb) 12/07/2024 1:28 PM INTERPRETER DEAF Height 162.6 cm (5' 4) 12/07/2024 1:28 PM INTERPRETER DEAF Body Mass Index 35.02 12/07/2024 1:28 PM INTERPRETER DEAF Plan of Treatment Health Maintenance Due Date Last Done Comments Breast Cancer Screening-Mammogram 1969 Cervical Cancer Screening 1969 Colon Cancer Screening-Colonoscopy 1969 Depression Screening 1969 Hepatitis C Screening 1969 Hepatitis B Screening 1987 Regular Well Visit/Exam 18-64 1987 Pneumococcal vaccine <65 (1 of 2 - PCV) 1988 Zoster Vaccine (1 of 2) 2019 Covid-19 Vaccine (3 - season) 2025, 12/24/2020 Influenza Vaccine (#1) 2025 DTaP/Tdap/Td Vaccine (3 - Td or Tdap) 11/12/202907/2020, 06/19/2015 Medical Devices Implanted Type Area System Technologist Device Identifier Shelf Expiration Date Model / Serial / Lot Medtronic Cardiac Rhythm Mgmt [id number] Amplia Mri Non Emergency Services Ambulance Driver-D Df-4 Implantable Quadripolar Left Ventricle - [id number] - [id number] Implanted:Qty: 1 on 01/29/2020 by Jovanni Vick MD at [facility] ICD Medtronic Inc [id number] 04/29/2021 DTM [id number] / [id number] / Medtronic Cardiac Rhythm Mgmt 6947m-55 Sprint Quattro Tensi-Lock 8.6fr 55cm 2 Coil Df4 Connector - [id number] - [id number] Implanted:Qty: 1 on 01/29/2020 by Jovanni Vick MD at [facility] Lead Medtronic Inc [id number] 03/03/2020 694 [id number] / [id number] / Medtronic Cardiac Rhythm Mgmt [id number] Capsure Sense Mri Surescan 5.3fr 45cm Bipolar Jena Is-1 Atrium - [id number] - [id number] Implanted:Qty: 1 on 01/29/2020 by Jovanni Vick MD at [facility] Lead Medtronic Inc [id number] 09/12/2021 [id number] / [id number] / Medtronic Inc [id number] Attain Performa Starfix 5.3fr 5.1fr 88cm Quadripolar Is4-Llll Latex Free - [id number] - [id number] Implanted:Qty: 1 on 01/29/2020 by Jovanni Vick MD at [facility] Lead Medtronic Inc [id number] 07/19/2021 [id number] / [id number] / Procedures Procedure Name Priority Date/Time Associated Diagnosis Comments DEVICE CHECK - REMOTE Routine 05/06/2025 9:01 AM CDT NICM (nonischemic cardiomyopathy) ([facility]) from Last 3 Months Results * DEVICE CHECK - REMOTE (05/06/2025 9:01 AM CDT) Anatomical Region Laterality Modality Other Narrative 05/06/2025 8:56 PM CDT Table formatting from the original result was not included. BiV ICD CHECK (REMOTE) Patient ID: Emelyn Villeda is a 54 y.o. female. This patient received a Medtronic BiV ICD. They had a routine remote transmission on 05/06/2025 Device implant indications: Nonischemic cardiomyopathy, CHF, LBBB Interrogation of the patient's device demonstrates the following: Presenting EGM: A sense Bi V paced @ 67 bpm Original Device Settings Right Atrium Right Ventricle Left Ventricle Sensitivity (mV) 0.3 mV 0.3 mV N/a mV Pacing Outputs 1.5 V @ 0.4 ms 2.0 V @ 0.4 ms 3.75 V @ 0.5 ms Testing Measurements Right Atrium Right Ventricle Left Ventricle Sensitivity (mV) 2 mV 7.9 mV Not done mV Impedence (Ohms) 589 ohms 399 ohms 703 ohms Pace Threshold 0.25 V @ 0.4 ms 1.0 V @ 0.4 ms 3.25 V @ 0.5 ms Pacing % 7.9 % 97.4 % 97.4 % HV Lead Impedance N/A 45/56 ohms N/A Battery Status: 17 months to ERICKA, charge time 4.5 seconds. Episodes last 90 days/Comments: AF [place] 0 % No new ventricular events. NORMAL DEVICE FUNCTION PROGRAMMED MEDICATIONS: Anti-coagulant(s): Eliquis 5 mg twice a day Anti-arrhythmic(s): Toprol-XL 25 mg daily PLAN: 1) Medtronic BiV ICD evaluation 2) Medtronic remote transmission scheduled in 3 months. 3) Programming appropriate for device settings Emelyn Sher RN Nasir Moody III, MD [facility] CARDIAC SERVICES PROCEDURES Final Result from Last 3 Months Insurance [facility] [employer] [place] ANTHEM ACCESS BLUE ACCESS OOS BLUE ACCESS OOS Care Teams Sprinkler Truck Driver Relationship Specialty Start Date End Date Leatha Brooks MD PCP - General Family Medicine 02/23/21 Miscellaneous, Not In File 01/29/20
== END 2025-07-01 14:38 | disposition home or self-care (01) ==
PROVIDERS: PCP Family Medicine
DX: R07.81 Pleurodynia (principal)
CPT/HCPCS: 71046

== ENCOUNTER 2025-08-19 18:34 | Emergency (ER) | payer BC, SELFPAY ==
[2025-08-19 18:55] VITALS: BP 122/68; PULSE 78; RESP 18; TEMP 36.2; O2SAT 100
--- NOTE | 2025-08-19 19:45 | ED.EAR ---
HPI - Ear Problem General Chief complaint: Ear Stated complaint: Ear Pain Time Seen by Provider: 08/19/25 19:46 Source: patient and RN notes reviewed Mode of arrival: ambulatory Limitations: no limitations History of Present Illness HPI Narrative: 55-year-old female presents with concern for a right ear popping. Reports it has been muscles for couple of days, she has had some runny nose stuffy nose and then today she felt a popping sensation. She denies any drainage from the ear. She denies any hearing changes. MD Complaint: ear pain Related Data Home Medications ?Medication ?Instructions ?Recorded ?Confirmed ?Last Taken ?Type sacubitril 97 mg-valsartan 103 mg 1 tablet PO BID 05/13/20 08/16/25 Unknown History tablet (Entresto) furosemide 20 mg tablet 40 mg PO QAM 07/03/20 08/16/25 Unknown History acetaminophen 500 mg tablet 500 mg PO Q6H PRN Pain 09/15/20 08/16/25 Unknown History (Tylenol Extra Strength) cetirizine 10 mg tablet (Zyrtec) 10 mg PO DAILY PRN Allergy Symptoms 08/16/22 08/16/25 Unknown History Allergies Allergy/AdvReac Type Severity Reaction Status Date / Time Iodinated Contrast Media Allergy Unknown Unknown Verified 08/19/25 19:01 Review of Systems Review of Systems: CONSTITUTIONAL: Denies malaise, chills, sweats, or fever. EYES: Denies visual changes, redness, or discharge. ENT: Reports rhinorrhea, congestion. Denies sinus pain, and sore throat. Reports right ear pain CARDIOVASCULAR: Denies chest pain, palpitations, or edema. RESPIRATORY: Denies cough. Denies dyspnea. GASTROINTESTINAL: Denies abdominal pain, nausea, vomiting, diarrhea SKIN: Denies rash or itching. MUSCULOSKELETAL: Denies myalgia. NEUROLOGIC: Denies headache. All systems reviewed & are unremarkable except as noted in HPI and below PMFSH Past Medical History Medical History Back pain Rib pain on left side Presence of combination internal cardiac defibrillator (ICD) and pacemaker Episodic migraine Frozen shoulder Right shoulder History of stroke Gallbladder disorder Allergies Right sided sciatica Mild asthma exacerbation Gastroenteritis Leiomyoma of the skin Hip pain, left Low back pain Subclinical hyperthyroidism Biceps tendonitis Rotator cuff tendonitis Right shoulder pain Hyperthyroidism Stroke Heart disease Headache, migraine Heart attack Chronic depression History of stroke without residual deficits RLS (restless legs syndrome) Enlargement of right sternoclavicular joint Nonischemic cardiomyopathy Iron (Fe) deficiency anemia Allergy to intravenous contrast Hypokalemia LBBB (left bundle branch block) DVT prophylaxis Normocytic anemia Anasarca CHF (congestive heart failure) Anxiety Asthma Seasonal allergies Surgical History Surgical History Adhesive capsulitis of right shoulder Evaluation under anesthesia with manipulation and intra-articular injection April 19, 2023 History of cardiac defibrillator placement 2019 History of permanent cardiac pacemaker placement 2019 Hx of excision of mass 06/15/2022- excision of subcutaneous leiomyoma right elbow History of cholecystectomy 2014 History of tubal ligation 1997 H/O section x2- 1992 & 1997 Family History Family History Father , Became short of breath and suddenly at home, son tried CPR but could not revive him. age 49. Hypertension Cerebral aneurysm known cerebral aneurysm 6 or 7 years prior to Heart disease Mother Alive and well Sibling Hypertension 2 brothers have hypertension Grandparent Cerebral aneurysm Cancer Asthma Daughter Asthma Depression Son Depression Thyroid disorder Other Acute myocardial infarction Family history of malignant neoplasm of breast Family history of malignant neoplasm of breast in first degree relative Social History Social History Social History: , 2 grown children. 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 Smoking status: Never smoker Second hand tobacco smoke exposure: No Alcohol intake: current Alcohol use details: VERY RARE Substance use: never Substance use type: does not use Do You Feel Safe in your Home?: Yes Lack of Transportation: No Lack of Food: Never True Current Housing: I Have Housing Concerned About Future Housing: No Difficulty Paying Gas/Electric Bills: No Difficulty Paying for Meds: No Currently Unemployed: No Education: High School Diploma/GED Difficulty w/ Childcare or Family Care: No Living arrangements: with family Occupation/Education: occupation Additional occupation/education comments: Br[employer]let [employer]- [employer] Gender identity (if verbalized by the patient): Female Spiritual care concerns: No Agree to blood products: Yes Comments At time of signature, agree with nursing past medical, surgical, social and family history. There is no relevant family history pertinent to the presenting complaint Exam Narrative: GENERAL: Well-appearing, well-nourished, and in no acute distress. HEAD: Normocephalic EYES: PERRLA, conjunctivae clear ENT: Nares clear, turbinates edematous, clear discharge. Mucous membranes moist. TM pearly ferguson with dull light reflex bilaterally with bleeding noted in the right ear canal, not able to visualize the entire right TM; no tragal tenderness, EAC unremarkable. No post or pre-auricular erythema, induration, or warmth noted. Oropharynx not erythematous without lesions. Tonsils not enlarged and without exudate, no drooling, no hoarseness, no trismus, uvula midline. NECK: Supple. No lymphadenopathy CHEST: Clear to auscultation, breath sounds equal. No wheezing, rhonchi, rales, or stridor. No respiratory distress, speaks in full sentences. HEART: Regular rate and rhythm. No murmur heard. SKIN: Warm, dry, no rash. NEURO: Alert and oriented x3. PSYCH: Normal mood and affect Course Course Emergency Course: Patient is aware of diagnosis, understands and agrees to treatment plan. Anticipatory guidance given. Patient agrees to follow-up as directed and is aware of reasons to seek care at the emergency department. Portions of this record may have been created with voice recognition software Level of Care: [facility] Visit Vital Signs Vital signs: Vital Signs Temperature 97.1 F L 08/19/25 18:55 Pulse Rate 78 08/19/25 18:55 Respiratory Rate 18 08/19/25 18:55 Blood Pressure 122/68 08/19/25 18:55 Pulse Oximetry 100 08/19/25 18:55 Oxygen Delivery Room Air 08/19/25 18:55 Temperature 97.1 F L 08/19/25 18:55 Pulse Rate 78 08/19/25 18:55 Respiratory Rate 18 08/19/25 18:55 Blood Pressure 122/68 08/19/25 18:55 Pulse Oximetry 100 08/19/25 18:55 Oxygen Delivery Room Air 08/19/25 18:55 Reviewed. Medical Decision Making MDM Narrative Medical decision making narrative: I evaluated this in the [facility]. History is obtained from patient who is an independent historian and physical exam was performed.? Available medical records were reviewed. ? Exam findings and relevant testing show no acute concerns or changes; patient is non-toxic appearing and is in no distress. Differential diagnosis considered: Rothman virus, strep pharyngitis, allergic rhinitis, upper respiratory tract infection, sinusitis, rhinosinusitis, nasopharyngitis. viral pharyngitis, otitis media, otitis externa, otitis effusion, pre/post auricular cellulitis, mastoiditis, cerumen impaction, foreign body. Exam findings show no acute concerns or changes; patient is non-toxic appearing and is in no distress. Patient is appropriate for outpatient treatment and follow-up. ? Differential diagnosis and treatment plan were discussed with the patient. Patient agrees with discussion and after shared medical decision making agrees with plan of care. All questions were answered to the patient's satisfaction. Patient is appropriate for outpatient treatment and follow-up. Vital Signs Vital Signs: Vital Signs Temperature 97.1 F L 08/19/25 18:55 Pulse Rate 78 08/19/25 18:55 Respiratory Rate 18 08/19/25 18:55 Blood Pressure 122/68 08/19/25 18:55 Pulse Oximetry 100 08/19/25 18:55 Oxygen Delivery Room Air 08/19/25 18:55 Temperature 97.1 F L 08/19/25 18:55 Pulse Rate 78 08/19/25 18:55 Respiratory Rate 18 08/19/25 18:55 Blood Pressure 122/68 08/19/25 18:55 Pulse Oximetry 100 08/19/25 18:55 Oxygen Delivery Room Air 08/19/25 18:55 Critical Care Time Critical Care Time Critical Care Time: No Discharge Plan Discharge Clinical Impression: Eardrum rupture, right Patient Disposition: Home Condition: Stable Instructions: Ruptured Eardrum (ED), How to Use Ear Drops (ED) Additional Instructions: Take medication as directed. Recommend antihistamine such as Benadryl at night time and Zyrtec or Linn during the day until symptoms improve Flonase nasal spray, 1 spray in each nostril once daily until symptoms improve Also, recommend symptomatic treatment includes: rest, fluids, and increase humidity of the air at home. Recommend Acetaminophen as directed on the bottle to reduce fever, pain Please schedule a follow-up visit with your personal physician for further evaluation and treatment within 3-5days. If your symptoms persist, change or worsen significantly before you can contact your personal physician then please, without delay, go to the emergency department for further evaluation. Patient Language: Congolese Prescriptions: New pseudoephedrine HCl [12 Hour Decongestant] 120 mg tablet extended release 120 mg PO Q12H PRN (Reason: nasal congestion) Qty: 20 0RF ofloxacin 0.3 % drops 5 drp RIGHT EAR DAILY 7 Days Qty: 10 0RF No Action Entresto 97-103 mg tablet 1 tablet PO BID acetaminophen [Tylenol Extra Strength] 500 mg tablet 500 mg PO Q6H PRN (Reason: Pain) cetirizine [Zyrtec] 10 mg tablet 10 mg PO DAILY PRN (Reason: Allergy Symptoms) ferrous sulfate 325 mg (65 mg iron) tablet 325 mg PO DAILY Qty: 90 0RF ascorbic acid (vitamin C) 1,000 mg capsule 1 g PO DAILY Qty: 90 0RF mecobalamin (vitamin B12) 1,000 mcg tablet,chewable 1,000 mcg PO DAILY Qty: 90 0RF magnesium 250 mg tablet 250 mg PO DAILY Qty: 90 0RF pantoprazole 40 mg tablet,delayed release (DR/EC) 40 mg PO QAM Qty: 30 3RF Ubrelvy 100 mg tablet 100 mg PO ONCE Qty: 14 4RF Rx Instructions: as a single dose; may repeat once in >=2 hours after first dose if needed furosemide 20 mg tablet 40 mg PO QAM ropinirole 4 mg tablet See Rx Instructions .ROUTE .COMPLEX Qty: 90 2RF Dose Instruction: TAKE 1 TABLET BY MOUTH EVERY DAY AT BEDTIME Rx Instructions: TAKE 1 TABLET BY MOUTH EVERY DAY AT BEDTIME albuterol sulfate 2.5 mg /3 mL (0.083 %) solution for nebulization 2.5 mg inhalation Q4-6H PRN (Reason: shortness of breath or wheezing) Qty: 75 1RF Eliquis 5 mg tablet See Rx Instructions .ROUTE .COMPLEX Qty: 180 1RF Dose Instruction: TAKE 1 TABLET BY MOUTH TWICE DAILY Rx Instructions: TAKE 1 TABLET BY MOUTH TWICE DAILY fluoxetine 20 mg capsule 60 mg PO DAILY Qty: 90 4RF fluticasone propion-salmeterol [Wixela Inhub] 250-50 mcg/dose blister with device 1 inh inhalation BID Qty: 60 4RF albuterol sulfate 90 mcg/actuation HFA aerosol inhaler 2 inh inhalation Q4H PRN (Reason: shortness of breath or wheezing) Qty: 8.5 6RF rosuvastatin 20 mg tablet 20 mg PO QPM Qty: 90 3RF diclofenac sodium 1 % gel 4 g topical QID Qty: 100 0RF Rx Instructions: apply to single knee, ankle, foot; for foot includes sole/toes/top of foot baclofen 5 mg tablet See Rx Instructions .ROUTE .COMPLEX Qty: 90 0RF Dose Instruction: TAKE 1 TABLET BY MOUTH THREE TIMES DAILY Rx Instructions: TAKE 1 TABLET BY MOUTH THREE TIMES DAILY Follow-up/Referrals: Todd,MD Leatha [Primary Care Provider, Family Practice] Time of Disposition: 19:55
== END 2025-08-19 19:57 | disposition home or self-care (01) ==
PROVIDERS: Emergency Provider Nurse Practitioner; PCP Family Medicine
DX: H72.91 Unspecified perforation of tympanic membrane, right ear (principal); E05.90 Thyrotoxicosis, unspecified without thyrotoxic crisis or storm; D50.9 Iron deficiency anemia, unspecified; I50.9 Heart failure, unspecified; Z86.73 Personal history of transient ischemic attack (TIA), and cerebral infarction without residual deficits; J45.909 Unspecified asthma, uncomplicated; I25.2 Old myocardial infarction; I42.8 Other cardiomyopathies; F32.A Depression, unspecified; Z95.810 Presence of automatic (implantable) cardiac defibrillator; Z79.01 Long term (current) use of anticoagulants
CPT/HCPCS: 99213; G0463

== ENCOUNTER 2025-09-13 02:16 | Day surgery (SDC) | payer BC, SELFPAY ==
[2025-09-06 15:01] VITALS: BMI 32.5
--- NOTE | 2025-09-06 15:36 | PC.NURSE ---
Spoke with PATIENT regarding medication ELIQUIS. PATIENT verbalizes understanding that the last dose is to be taken on 09/10/2025 and the Endoscopist will instruct them when to restart after the procedure.
--- OUTSIDE RECORDS SUMMARY | 2025-09-13 02:19 | XMS_ITS | Clinical Summary ---
Author Organization [facility] [place] [address] Address [address] [place] [address] Care Team Providers Care Boatswains Mate Name Role Phone Miscellaneous, Not In File Unavailable Unava Leatha Damico MD Primary Care Provider [phone] Allergies No known active allergies Medications rosuvastatin (CRESTOR) 20 mg tablet Take 1 tablet (20 mg total) by mouth daily 3 9 Active Wixela Inhub 250-50 mcg/dose diskus inhaler INL 1 PUFF PO BID 0 Active albuterol HFA (PROVENTIL HFA,VENTOLIN HFA,PROAIR HFA) 90 mcg/actuation inhaler Inhale 2 puffs every 6 (six) hours as needed for wheezing Active rOPINIRole (REQUIP) 4 mg tablet nightly 0 Active apixaban (ELIQUIS) 5 mg tablet Take 1 tablet (5 mg total) by mouth 2 (two) times a day 180 tablet 3 1 Active FLUoxetine (PROzac) 60 mg tablet 3 Active baclofen (LIORESAL) 5 mg tablet Take 1 tablet (5 mg total) by mouth as needed 3 Active mirtazapine (REMERON) 15 mg tablet 3 Active spironolactone (ALDACTONE) 25 mg tabletIndications:C hronic systolic CHF (congestive heart failure) (HCC) TAKE 1 TABLET(25 MG) BY MOUTH DAILY 90 tablet 1 4 Active cyanocobalamin (Vitamin B-12) 100 mcg tablet Take 10 tablets (1,000 mcg total) by mouth daily Active pedi mv no.189/ferrous sulfate (POLY--TOR WITH IRON ORAL) Take by mouth daily Active ascorbic acid (vitamin C) 1,000 mg tablet Take 1 tablet (1,000 mg total) by mouth daily Active metoprolol XL (TOPROL-XL) 50 mg extended release tabletIndications:D ilated cardiomyopathy (HCC) Take 0.5 tablets (25 mg total) by mouth daily 45 tablet 3 5 Active furosemide (LASIX) 20 mg tablet TAKE 1 TABLET(20 MG) BY MOUTH TWICE DAILY 180 tablet 5 Active sacubitriL-valsarta n (Entresto) 97-103 mg tablet Take 1 tablet by mouth 2 (two) times a day 180 tablet 1 5 Active Active Problems Problem Noted Date Diagnosed Date Chest wall pain, chronic 12/15/2020 Dysthymia 12/15/2020 Hypotension 12/15/2020 Precordial pain 09/03/2020 Dizziness 09/03/2020 Nausea 09/03/2020 Elevated LFTs 09/03/2020 Obesity (BMI 30.0-34.9) 09/03/2020 Biventricular ICD (implantab le cardioverter-defibrillator) in place 01/29/2020 Overview (01/29/2020): Medtronic Amplia MRI Quad INSURANCE ADJUSTOR-D implanted on 01/29/20 for NICM/CHF/LBBB. 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 Encounters Date Type Department Care Team Description 08/05/2025 11:30 AM BINGO CHECKER Ancillary Procedure [facility] [address] [id number] NICM (nonischemic cardiomyopathy) (HCC) from Last 3 Months Surgical History Surgery [...] on file Legal Sex Female 8:19 AM BINGO CHECKER Gender Identity Female 03/10/2020 3:24 PM CDT Sexual Orientation Straight 03/10/2020 3: 24 PM CDT Last Filed Vital Signs Vital Sign Reading Time Taken Comments Blood Pressure 140/80 12/07/2024 1:28 PM BINGO CHECKER Pulse 82 12/07/2024 1:28 PM BINGO CHECKER Temperature 36.5 C (97.7 F) 09/30/2020 12:46 PM BINGO CHECKER Respiratory Rate 15 01/29/2020 1:47 PM CDT Oxygen Saturation 97% 12/07/2024 1:28 PM BINGO CHECKER Inhaled Oxygen Concentration - - Weight 92.5 kg (204 lb) 12/07/2024 1:28 PM BINGO CHECKER Height 162.6 cm (5' 4) 12/07/2024 1:28 PM BINGO CHECKER Body Mass Index 35.02 12/07/2024 1:28 PM BINGO CHECKER Plan of Treatment Health Maintenance Due Date [...] 11/12/202907/2020, 06/19/2015 Medical Devices Implanted Type Area Guidance Director Device Identifier Shelf Expiration Date Model / Serial / Lot Medtronic Cardiac Rhythm Mgmt [id number] Amplia Mri Primer Inserting Machine Adjuster-D Df-4 Implantable Quadripolar Left Ventricle - [id number] - [id number] Implanted:Qty: 1 on 01/29/2020 by Jovanni Vick MD at [facility] ICD Medtronic Inc [id number] 04/29/2021 DTM [id number] / [id number] / Medtronic Cardiac Rhythm Mgmt 6947m-55 Sprint Quattro Tensi-Lock 8.6fr 55cm 2 Coil Df4 Connector - [id number] - [id number] Implanted:Qty: 1 on 01/29/2020 by Jovanni Vick MD at [facility] Lead Medtronic Inc [id number] 03/03/2020 694 [id number] / [id number] / Medtronic Cardiac Rhythm Mgmt [id number] Capsure Sense Mri Surescan 5.3fr 45cm Bipolar Jena Is-1 Atrium - [id number] - [id number] Implanted:Qty: 1 on 01/29/2020 by Jovanni Vick MD at [facility] Lead Medtronic Inc [id number] 09/12/2021 [id number] / [id number] / Medtronic Inc [id number] Attain Performa Starfix 5.3fr 5.1fr 88cm Quadripolar Is4-Llll Latex Free - [id number] - [id number] Implanted:Qty: 1 on 01/29/2020 by Jovanni Vick MD at [facility] Lead Medtronic Inc [id number] 07/19/2021 [id number] / [id number] / Procedures Procedure Name Priority Date/Time Associated Diagnosis Comments DEVICE CHECK - REMOTE Routine 08/05/2025 8:27 AM BINGO CHECKER NICM [facility]nonischemic cardiomyopathy) [facility] from Last 3 Months Results * DEVICE CHECK - REMOTE (08/05/2025 8:27 AM BINGO CHECKER) Anatomical Region Laterality Modality Other Narrative 08/05/2025 10:14 AM BINGO CHECKER Table formatting from the original result was not included. BiV ICD CHECK (REMOTE) Patient ID: Emelyn Villeda is a 55 y.o. female. This patient received a Medtronic BiV ICD. They had a routine remote transmission on 08/05/2025 Device implant indications: Nonischemic cardiomyopathy, CHF, LBBB Interrogation of the patient's device demonstrates the following: Presenting EGM: A sensed Bi V paced @ 80 bpm Original Device Settings Right Atrium Right Ventricle Left Ventricle Sensitivity (mV) 0.3 mV 0.3 mV N/a mV Pacing Outputs 1.5 V @ 0.4 ms 2.0 V @ 0.4 ms 4.75 V @ 0.5 ms Testing Measurements Right Atrium Right Ventricle Left Ventricle Sensitivity (mV) 2.0 mV 9.9 mV N/a mV Impedence (Ohms) 589 ohms 399 ohms 722 ohms Pace Threshold 0.25 V @ 0.4 ms 1.0 V @ 0.4 ms 4.25 V @ 0.5 ms Pacing % 16 % 96 % 95 % HV Lead Impedance N/A 43/57 ohms N/A Battery Status: 14 months to ERICKA, charge time 4.5 seconds. Episodes last 90 days/Comments: AF Crane 0 % No ventricular high rate NORMAL DEVICE FUNCTION PROGRAMMED MEDICATIONS: Anti-coagulant(s): Eliquis 5 mg twice a day Anti-arrhythmic(s): Toprol 25 mg daily PLAN: 1) Medtronic BiV ICD evaluation 2) Medtronic remote transmission scheduled in 3 months. 3) Programming appropriate for device settings Dariana Matthew RN Nasir Moody III, MD [facility] PROCEDURES Final Result from Last 3 Months Insurance BLUE Myntra OOS BL[place] ANTH ACCESS BLUE Myntra OOS [employer] METERING OOS Care Teams Boatswains Mate Relationship Specialty Start Date End Date Leatha Brooks MD PCP - General Family Medicine 02/23/21 Miscellaneous, Not In File 01/29/20
--- OUTSIDE RECORDS SUMMARY | 2025-09-13 02:19 | XMS_ITS | Clinical Summary ---
Author Organization [facility] Address [address] [place] [address] Care Team Providers Care Sport Internship Name Role Phone Provider, No Pcp Primary Care Provider Unavailab le Source Comments [facility],non-owned Affiliates and Associated Physician Practices is amultiple site organization consisting of ambulatory clinics and hospital sitesin [place], [place], [place] and [place]. This disclosure is being madepursuant to the Care Everywhere program and may not contain all information available regarding this patient. Last updated 18.[facility] Allergies Active Allergy Reactions Criticality Noted Date Comments Diphenhydramine Other 09/05/2019 states medication irriates restless legs. Medications * Be aware that medications may not be up to date on this document. Alwaysverify current medications with the patient. rOPINIRole (REQUIP) [...] AM CDT Legal Sex Female 11:43 PM JOINT SEALER Gender Identity Female 02/09/2024 10:26 AM CDT Sexual Orientation Not on file Last Filed Vital Signs Vital Sign Reading Time Taken Comments Blood Pressure 113/70 03/15/2024 2:41 PM CDT Pulse 74 03/15/2024 2:41 PM CDT Temperature 36 C (96.8 F) 03/15/2024 2:41 PM CDT Respiratory Rate 21 09/07/2019 1:00 PM JOINT SEALER Oxygen Saturation 97% 03/15/2024 2:41 PM CDT [...] PANEL (CALCIUM TOTAL) Routine 09/07/2019 4:09 AM JOINT SEALER from Last 3 Months or Most Recently Relevant to Health Maintenance Results * BASIC METABOLIC PANEL (CALCIUM TOTAL) (09/07/2019 4:09 AM JOINT SEALER) BUN 10 7 - 26 mg/dL 09/07/2019 4:35 AM [facility] Creatinine 0.8 0.6 - 1.2 mg/dL 09/07/2019 4:35 AM [facility] Sodium 138 136 - 145 mmol/L 09/07/2019 4:35 AM [facility] Potassium 4.0 3.5 - 4.5 mmol/L 09/07/2019 4:35 AM [facility] Chloride 106 98 - 107 mmol/L 09/07/2019 4:35 AM [facility] CO2 24 22 - 29 mmol/L 09/07/2019 4:35 AM [facility] Glucose 97 70 - 115 mg/dL 09/07/2019 4:35 AM [facility] Calcium 8.7 8.4 - 10.2 mg/dL 09/07/2019 4:35 AM [facility] Anion Gap 12 8 - 18 09/07/2019 4:35 AM [facility] BUN/Creatinine Ratio 13 7 - 23 09/07/2019 4:35 AM [facility] Osmolality Calculated 285 270 - 300 mOsm/kg 09/07/2019 4:35 AM [facility] eGFR >60 >60 mL/min/1.7 3 m2 09/07/2019 4:35 AM [facility] Blood BLOOD SPECIMEN / Unknown Venipuncture / Unknown 09/07/2019 4:09 AM JOINT SEALER 09/07/2019 4:16 AM [facility] us German Price MD LAB - CHEMISTRY ORDERABLES Final Result [facility] [address] [place] [address] from Last 3 Months or Most Recently Relevant to Health Maintenance Insurance ANTHEM ANTHEM Advance Directives * Full Code (Latest Code Status on File) Date Activated Date Inactivated Comments 09/05/2019 2:57 AM 09/07/2019 4:04 PM * Full Code Date Activated Date Inactivated Comments 09/05/2019 12:04 AM 09/05/2019 2:57 AM Care Teams Sport Internship Relationship Specialty Start Date End Date Provider, No Pcp PCP - General 03/15/24
[2025-09-13 10:27] VITALS: BP 129/72; PULSE 73; RESP 20; TEMP 36.3; O2SAT 98; BMI 33.3
[2025-09-13] MEDS: LACTATED RINGERS 1,000 ML 150 ML IV CONT (10:31)
--- NOTE | 2025-09-13 11:23 | WPDANESEPPF ---
Anes - Initial Pre Proc Eval Procedure: Operation Date: 09/13/25 11:30 Proposed Procedures p Esophagogastroduodenoscopy EGD - Pro Lovelace MD Date/Time: 09/13/25 11:23 Surgeon: Pro Lovelace MD Pre Op Diagnosis: Nausea with vomiting, unspecified Patient Data Age: 55 Gender: F Height: 1.63 m Weight: 87.9 kg Last Vital Signs Temp 36.3 C L 09/13/25 10:27 Pulse 73 09/13/25 10:27 Resp 20 09/13/25 10:27 BP 129/72 09/13/25 10:27 Pulse Ox 98 09/13/25 10:27 O2 Del Method Room Air 09/13/25 10:27 Allergies Allergy/AdvReac Type Severity Reaction Status Date / Time Iodinated Contrast Media Allergy Unknown Unknown Verified 09/06/25 15:02 Home Medications ?Medication ?Instructions ?Recorded ?Confirmed ?Type sacubitril 97 mg-valsartan 103 mg 1 tablet PO BID 05/13/20 09/06/25 History tablet (Entresto) furosemide 20 mg tablet 40 mg PO QAM 07/03/20 09/13/25 History acetaminophen 500 mg tablet 500 mg PO Q6H PRN Pain 09/15/20 09/06/25 History (Tylenol Extra Strength) cetirizine 10 mg tablet (Zyrtec) 10 mg PO DAILY PRN Allergy Symptoms 08/16/22 09/13/25 History ascorbic acid (vitamin C) 1,000 mg 1 g PO DAILY #90 caps 12/09/23 09/13/25 Rx capsule ferrous sulfate 325 mg (65 mg 325 mg PO DAILY #90 tabs 12/09/23 09/06/25 Rx iron) tablet magnesium 250 mg tablet 250 mg PO DAILY #90 tabs 12/09/23 09/13/25 Rx mecobalamin (vitamin B12) 1,000 1,000 mcg PO DAILY #90 tabs 12/09/23 09/13/25 Rx mcg chewable tablet albuterol sulfate 2.5 mg/3 mL 2.5 mg (3 mL) inhalation Q4-6H PRN 12/03/24 09/06/25 Rx (0.083 %) solution for nebulization shortness of breath or wheezing #75 mL apixaban 5 mg tablet (Eliquis) See Rx Instructions .Route 12/21/24 09/13/25 Rx .COMPLEX #180 tabs albuterol sulfate 90 mcg/actuation 2 inh inhalation Q4H PRN shortness 04/09/25 09/06/25 Rx aerosol inhaler of breath or wheezing #8.5 grams ropinirole 4 mg tablet See Rx Instructions .Route 04/11/25 09/13/25 Rx .COMPLEX #90 tabs rosuvastatin 20 mg tablet 20 mg PO QPM #90 tabs 06/04/25 09/13/25 Rx ubrogepant 100 mg tablet (Ubrelvy) 100 mg PO ONCE #14 tabs 07/01/25 09/06/25 Rx diclofenac sodium 1 % topical gel 4 g topical QID #100 grams 07/17/25 09/13/25 Rx pseudoephedrine HCl 120 mg 120 mg PO Q12H PRN nasal 08/19/25 09/06/25 Rx tablet,extended release (12 Hour congestion #20 tabs Decongestant ER) fluoxetine 20 mg capsule See Rx Instructions .Route 09/04/25 09/13/25 Rx .COMPLEX #90 caps pantoprazole 40 mg tablet,delayed See Rx Instructions .Route 09/04/25 09/13/25 Rx release .COMPLEX #90 tabs baclofen 5 mg tablet See Rx Instructions .Route 09/06/25 09/13/25 History .COMPLEX PRN pain fluticasone 250 mcg-salmeterol 50 1 inh inhalation QAM 09/06/25 09/13/25 History mcg/dose blistr powdr for inhalation (Wixela Inhub) metoprolol succinate 50 mg 25 mg PO QPM 09/06/25 09/13/25 History tablet,extended release 24 hr riboflavin (vitamin B2) 100 mg 100 mg PO DAILY 09/06/25 09/13/25 History tablet Patient hx anesthesia problems: none Family hx anesthesia problems: none Results Review: All pre-operative results and documents have been reviewed as part of the pre-operative evaluation. [facility], LAT[facility] Past Medical History Medical History Back pain Rib pain on left side Presence of combination internal cardiac defibrillator (ICD) and pacemaker Episodic migraine Frozen shoulder Right shoulder History of stroke Gallbladder disorder Allergies Right sided sciatica Mild asthma exacerbation Gastroenteritis Leiomyoma of the skin Hip pain, left Low back pain Subclinical hyperthyroidism Biceps tendonitis Rotator cuff tendonitis Right shoulder pain Hyperthyroidism Stroke Heart disease Headache, migraine Heart attack Chronic depression History of stroke without residual deficits RLS (restless legs syndrome) Enlargement of right sternoclavicular joint Nonischemic cardiomyopathy Iron (Fe) deficiency anemia Allergy to intravenous contrast Hypokalemia LBBB (left bundle branch block) DVT prophylaxis Normocytic anemia Anasarca CHF (congestive heart failure) Anxiety Asthma Seasonal allergies Surgical History Surgical History Adhesive capsulitis of right shoulder Evaluation under anesthesia with manipulation and intra-articular injection April 19, 2023 History of cardiac defibrillator placement 2019 History of permanent cardiac pacemaker placement 2019 Hx of excision of mass 06/15/2022- excision of subcutaneous leiomyoma right elbow History of cholecystectomy 2014 History of tubal ligation 1997 H/O section x2- 1992 & 1997 Family History Family History Father , Became short of breath and suddenly at home, son tried CPR but could not revive him. age 49. Hypertension Cerebral aneurysm known cerebral aneurysm 6 or 7 years prior to Heart disease Mother Alive and well Sibling Hypertension 2 brothers have hypertension Grandparent Cerebral aneurysm Cancer Asthma Daughter Asthma Depression Son Depression Thyroid disorder Other Acute myocardial infarction Family history of malignant neoplasm of breast Family history of malignant neoplasm of breast in first degree relative Social History Social History Social History: , 2 grown children. Works at [employer] with computer work on it some lifting. 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- [employer] Gender identity (if verbalized by the patient): Female Spiritual care concerns: No Agree to blood products: Yes Anes - Eval Final PreProcedure Day of Procedure 09/13/25 11:23 Patient weight: obese Heart: regular rate and rhythm Lungs: clear to auscultation Airway: Mallampati scale class II Neurological: alert and oriented Last oral intake: >/= 8 hours ASA classification: III Emergent: no Anesthetic plan: proceed Anesthesia type and monitoring: general GIVS and standard monitoring Results Review: All pre-operative results and documents have been reviewed as part of the pre-operative evaluation. Informed Consent: The patient's anesthetic plan and its attendant risks and benefits were discussed with the patient/family/POA. Questions were solicited and answers provided to the satisfaction of the patient/family/POA.
--- NOTE | 2025-09-13 11:37 | PM.HPGS ---
History of Present Illness History of Present Illness Consent: Risks, benefits, and alternatives have been discussed and questions answered. Patient agrees to proceed with procedure. Chief complaint: Nausea with vomiting, unspecified Narrative: Emelyn Villeda is a 55 year old female here for first egd because nausea and dyspepsia since April which has improved with pantoprazole. Review of Systems Review of Systems: All systems reviewed & are unremarkable except as noted in HPI and below PMFSH Past Medical History Medical History Back pain Rib pain on left side Presence of combination internal cardiac defibrillator (ICD) and pacemaker Episodic migraine Frozen shoulder Right shoulder History of stroke Gallbladder disorder Allergies Right sided sciatica Mild asthma exacerbation Gastroenteritis Leiomyoma of the skin Hip pain, left Low back pain Subclinical hyperthyroidism Biceps tendonitis Rotator cuff tendonitis Right shoulder pain Hyperthyroidism Stroke Heart disease Headache, migraine Heart attack Chronic depression History of stroke without residual deficits RLS (restless legs syndrome) Enlargement of right sternoclavicular joint Nonischemic cardiomyopathy Iron (Fe) deficiency anemia Allergy to intravenous contrast Hypokalemia LBBB (left bundle branch block) DVT prophylaxis Normocytic anemia Anasarca CHF (congestive heart failure) Anxiety Asthma Seasonal allergies Surgical History Surgical History Adhesive capsulitis of right shoulder Evaluation under anesthesia with manipulation and intra-articular injection April 19, 2023 History of cardiac defibrillator placement 2019 History of permanent cardiac pacemaker placement 2019 Hx of excision of mass 06/15/2022- excision of subcutaneous leiomyoma right elbow History of cholecystectomy 2014 History of tubal ligation 1997 H/O section x2- 1992 & 1997 Family History Family History Father , Became short of breath and suddenly at home, son tried CPR but could not revive him. age 49. Hypertension Cerebral aneurysm known cerebral aneurysm 6 or 7 years prior to Heart disease Mother Alive and well Sibling Hypertension 2 brothers have hypertension Grandparent Cerebral aneurysm Cancer Asthma Daughter Asthma Depression Son Depression Thyroid disorder Other Acute myocardial infarction Family history of malignant neoplasm of breast Family history of malignant neoplasm of breast in first degree relative Social History Social History Social History: , 2 grown children. Works at [employer] with computer work on it some lifting. 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- [employer] Gender identity (if verbalized by the patient): Female Spiritual care concerns: No Agree to blood products: Yes Meds Home Medications and Allergies Home Medications ?Medication ?Instructions ?Recorded ?Confirmed ?Type sacubitril 97 mg-valsartan 103 mg 1 tablet PO BID 05/13/20 09/06/25 History tablet (Entresto) furosemide 20 mg tablet 40 mg PO QAM 07/03/20 09/13/25 History acetaminophen 500 mg tablet 500 mg PO Q6H PRN Pain 09/15/20 09/06/25 History (Tylenol Extra Strength) cetirizine 10 mg tablet (Zyrtec) 10 mg PO DAILY PRN Allergy Symptoms 08/16/22 09/13/25 History ascorbic acid (vitamin C) 1,000 mg 1 g PO DAILY #90 caps 12/09/23 09/13/25 Rx capsule ferrous sulfate 325 mg (65 mg 325 mg PO DAILY #90 tabs 12/09/23 09/06/25 Rx iron) tablet magnesium 250 mg tablet 250 mg PO DAILY #90 tabs 12/09/23 09/13/25 Rx mecobalamin (vitamin B12) 1,000 1,000 mcg PO DAILY #90 tabs 12/09/23 09/13/25 Rx mcg chewable tablet albuterol sulfate 2.5 mg/3 mL 2.5 mg (3 mL) inhalation Q4-6H PRN 12/03/24 09/06/25 Rx (0.083 %) solution for nebulization shortness of breath or wheezing #75 mL apixaban 5 mg tablet (Eliquis) See Rx Instructions .Route 12/21/24 09/13/25 Rx .COMPLEX #180 tabs albuterol sulfate 90 mcg/actuation 2 inh inhalation Q4H PRN shortness 04/09/25 09/06/25 Rx aerosol inhaler of breath or wheezing #8.5 grams ropinirole 4 mg tablet See Rx Instructions .Route 04/11/25 09/13/25 Rx .COMPLEX #90 tabs rosuvastatin 20 mg tablet 20 mg PO QPM #90 tabs 06/04/25 09/13/25 Rx ubrogepant 100 mg tablet (Ubrelvy) 100 mg PO ONCE #14 tabs 07/01/25 09/06/25 Rx diclofenac sodium 1 % topical gel 4 g topical QID #100 grams 07/17/25 09/13/25 Rx pseudoephedrine HCl 120 mg 120 mg PO Q12H PRN nasal 08/19/25 09/06/25 Rx tablet,extended release (12 Hour congestion #20 tabs Decongestant ER) fluoxetine 20 mg capsule See Rx Instructions .Route 09/04/25 09/13/25 Rx .COMPLEX #90 caps pantoprazole 40 mg tablet,delayed See Rx Instructions .Route 09/04/25 09/13/25 Rx release .COMPLEX #90 tabs baclofen 5 mg tablet See Rx Instructions .Route 09/06/25 09/13/25 History .COMPLEX PRN pain fluticasone 250 mcg-salmeterol 50 1 inh inhalation QAM 09/06/25 09/13/25 History mcg/dose blistr powdr for inhalation (Wixela Inhub) metoprolol succinate 50 mg 25 mg PO QPM 09/06/25 09/13/25 History tablet,extended release 24 hr riboflavin (vitamin B2) 100 mg 100 mg PO DAILY 09/06/25 09/13/25 History tablet Allergies Allergy/AdvReac Type Severity Reaction Status Date / Time Iodinated Contrast Media Allergy Unknown Unknown Verified 09/06/25 15:02 Vital Signs Vital Signs - 24 hr 09/13/25 10:27 Temperature 97.3 F L Pulse Rate 73 Respiratory Rate 20 Blood Pressure 129/72 Pulse Oximetry 98 Oxygen Delivery Room Air Exam Const: General: comfortable and no acute distress HENMT: Face/Nose/Sinus: Normal nares present Eyes: General: appearance normal, both eyes and all related structures Neck: Neck: no JVD Resp: Auscultation: clear to auscultation bilaterally Cardio: Rate: regular rate Rhythm: regular rhythm GI: Inspection: non-distended GI Palp: Yes Soft to palpation Skin: General skin exam: normal color Extrem: General: normal to inspection Psych: Mental Status: mental status grossly normal Assessment and Plan Assessment and plan (1) Nausea and vomiting: Qualifiers: Vomiting type: unspecified Vomiting Intractability: non-intractable Qualified Code(s): R11.2 - Nausea with vomiting, unspecified Code(s): R11.2 - Nausea with vomiting, unspecified Status: Acute Assessment and Plan: egd with bx better with ppi
--- NOTE | 2025-09-13 11:59 | S_PTH ---
PATIENT: Emelyn Villeda LOC: [facility]#:[id number] AGE/SX: 55/F ROOM: RE09/13/[address]: Pro Lovelace MD : 1970 BED: DIS: 09/13/2025 SPEC #: [id number] RECD: 09/13/25 13:06 STATUS: RACHEAL REAdriana #: [id number] KATALINA: 09/13/25 11:[address]: Pro Lovelace DEPT: [facility] Surgical RECD BY: Sosa Sebastian ENTERED: 09/13/25 13:06 SP TYPE: Surgical OTHR DR: Sven Isidro, CONSTANTIN Tissues: A - Gastric Biopsy Procedures: Hematoxylin and Eosin Stain Gross and Microscopic Level 4
[2025-09-13 12:02] VITALS: BP 85/23; PULSE 74; RESP 22; O2SAT 97
[2025-09-13 12:12] VITALS: BP 85/34; PULSE 80; RESP 22; O2SAT 100
[2025-09-13 12:22] VITALS: BP 107/41; PULSE 64; RESP 22; O2SAT 100
== END 2025-09-13 12:37 | disposition home or self-care (01) ==
PROVIDERS: Referring Provider Nurse Practitioner Family; Visit Provider Internal Medicine Gastroenterology
PROC: 0DJ08ZZ Inspection of Upper Intestinal Tract, Via Natural or Artificial Opening Endoscopic (ICD-10-PCS; CPT 43239; principal; 2025-09-13 11:30)
DX: K31.89 Other diseases of stomach and duodenum (principal); K29.70 Gastritis, unspecified, without bleeding; J45.909 Unspecified asthma, uncomplicated; E05.90 Thyrotoxicosis, unspecified without thyrotoxic crisis or storm; G25.81 Restless legs syndrome; F32.A Depression, unspecified; I42.8 Other cardiomyopathies; D50.9 Iron deficiency anemia, unspecified; E87.6 Hypokalemia; D64.9 Anemia, unspecified; F41.9 Anxiety disorder, unspecified; K82.9 Disease of gallbladder, unspecified; I51.9 Heart disease, unspecified; I25.2 Old myocardial infarction; I44.7 Left bundle-branch block, unspecified; I50.9 Heart failure, unspecified; E66.9 Obesity, unspecified; Z68.33 Body mass index [BMI] 33.0-33.9, adult; Z79.01 Long term (current) use of anticoagulants; Z79.51 Long term (current) use of inhaled steroids; Z98.890 Other specified postprocedural states; Z98.51 Tubal ligation status; Z90.49 Acquired absence of other specified parts of digestive tract; Z95.810 Presence of automatic (implantable) cardiac defibrillator; Z86.718 Personal history of other venous thrombosis and embolism; Z86.73 Personal history of transient ischemic attack (TIA), and cerebral infarction without residual deficits; Z80.3 Family history of malignant neoplasm of breast; Z82.49 Family history of ischemic heart disease and other diseases of the circulatory system
CPT/HCPCS: 43239; 88305; J2003; J2704; J7120